=== PATIENT | male | born 1980 | race Caucasian/White ===

== ENCOUNTER 2017-03-25 17:29 | Emergency (ER) | payer SELFPAY ==
[2017-03-25 17:40] VITALS: BP 140/78
--- NOTE | 2017-03-25 18:25 | ED ---
Upper Extremity Pain - HPI Summary HPI Summary: 36 yr old male with the complaint of right shoulder pain. Onset 3 weeks ago when a box fell on his right shoulder. Pain is present only when he attempts to lift arm. Rates it as 6/10 when lifting. when at rest he has no pain. Pain localized over the lateral shoulder and radiates up his right neck when lifts arm up. He denies numbness or weakness in his right hand. Injury occurred at work 3 weeks ago per the patient. - History of Current Complaint Chief Complaint: UCUpperExtremity Stated Complaint: RIGHT SHOULDER PAIN Time Seen by Provider: 03/25/17 18:06 - Allergies/Home Medications Allergies/Adverse Reactions: Allergies Allergy/AdvReac Type Severity Reaction Status Date / Time No Known Allergies Allergy Verified 03/25/17 17:41 Home Medications: Home Medications Fenofibrate 40 mg PO BID 03/25/17 [History Confirmed 03/25/17] Insulin Detemir [Levemir Flextouch] 50 unit SC BEDTIME 03/25/17 [History Confirmed 03/25/17] Insulin LISPRO* [HumaLOG*] 10 units SUBCUT DIRECTED 03/25/17 [History Confirmed 03/25/17] Rosuvastatin (NF) [Crestor (NF)] 10 mg PO DAILY 03/25/17 [History Confirmed 07/01] metFORMIN* [Glucophage 500 MG TAB *] 500 mg PO BID 03/25/17 [History Confirmed 03/25/17] PMH/Surg Hx/FS Hx/Imm Hx Endocrine/Hematology History: Reports: Hx Diabetes - IDDM Cardiovascular History: Reports: Hx Hypertension Denies: Hx Congestive Heart Failure GI History: Reports: Hx Gastroesophageal Reflux Disease, Other GI Disorders - Pancreatitis History: Denies: Hx Renal Disease - Surgical History Surgery Procedure, Year, and Place: Appendectomy Infectious Disease History: No Infectious Disease History: Denies: Traveled Outside the [place] in Last 30 Days - Social History Alcohol Use: Rare Substance Use Type: Reports: None Smoking Status (MU): Former Smoker Type: Cigarettes Review of Systems Constitutional: Negative Positive: Other - right shoulder pain All Other Systems Reviewed And Are Negative: Yes Physical Exam Triage Information Reviewed: Yes Vital Signs On Initial Exam: Initial Vitals Temp Pulse Resp BP Pulse Ox 98.9 F 95 20 140/78 96 03/25/17 17:34 03/25/17 17:34 03/25/17 17:34 03/25/17 17:34 03/25/17 17:34 Vital Signs Reviewed: Yes Appearance: Positive: Well-Appearing, No Pain Distress, Well-Nourished Skin: Positive: Warm Head/Face: Positive: Normal Head/Face Inspection Eyes: Positive: EOMI ENT: Positive: Normal ENT inspection Neck: Positive: Supple, Nontender Respiratory/Lung Sounds: Positive: Clear to Auscultation, Breath Sounds Present Cardiovascular: Positive: Pulses are Symmetrical in both Upper and Lower Extremities - upper examined only Musculoskeletal: Positive: Other - tender over the right lateral shoulder, no deformity, no bruise, no redness, no effusion. He has pain on elevation of the arm in the abduction and forward flexion beyond 90 degrees. Neurological: Positive: Sensory/Motor Intact, Alert, Oriented to Person Place, Time, CN Intact II-III Psychiatric: Positive: Normal Diagnostics - Vital Signs Vital Signs Temp Pulse Resp BP Pulse Ox 03/25/17 17:34 98.9 F 95 20 140/78 96 - Laboratory Lab Statement: Any lab studies that have been ordered have been reviewed, and results considered in the medical decision making process. - Radiology shoulder Radiology Interpretation Completed By: ED Physician - Per my reading the patient appears to have a clavicle fracture, laterally. Radiology reads film as negative. Course/Dx - Course Course Of Treatment: 36 yr old with clavicle fracture non displaced, by my reading on xray. will Give sling, and referral to ortho. - Diagnoses Provider Diagnoses: Right clavicle fracture, Nondisplaced fracture Discharge - Discharge Plan Condition: Good Disposition: HOME Patient Education Materials: Clavicle Fracture (ED) Referrals: JULEE Hector [Primary Care Provider] - Umberto Osullivan MD [Medical Doctor] - 3 Days
--- NOTE | 2017-03-25 19:04 | RAD ---
INDICATION: Right shoulder pain since injury 3 weeks earlier COMPARISON: None. TECHNIQUE: 4 views of the right shoulder were obtained. FINDINGS: The adequately corticated bones are in normal alignment. Joint spaces appear maintained. No fracture, dislocation or focal bony abnormality is seen. IMPRESSION: Normal radiograph of the right shoulder. If the patient's symptoms persist, follow-up imaging is recommended.
== END 2017-03-25 19:33 | disposition home or self-care (01) ==
LOC: UCCORT 17:29
DX: M25.511 Pain in right shoulder (principal); E11.9 Type 2 diabetes mellitus without complications; Z79.4 Long term (current) use of insulin; Z79.84 Long term (current) use of oral hypoglycemic drugs; I10 Essential (primary) hypertension; K21.9 Gastro-esophageal reflux disease without esophagitis; K85.90 Acute pancreatitis without necrosis or infection, unspecified; Z87.891 Personal history of nicotine dependence
CPT/HCPCS: 99212; G0463

== ENCOUNTER 2017-10-09 08:49 | Inpatient (IN) | payer SELFPAY ==
[2017-10-09] MEDS ORDERED: HYDROmorphone INJ* 1 MG/ML CARPUJECT SYRINGE IV ONE ×3 (09:02→14:18)
[2017-10-09] MEDS ORDERED: Ondansetron INJ* 2 MG/ML VIAL IV ONE ×2 (09:02→12:27)
[2017-10-09 09:37] LABS: Red Blood Count 4.95 10^6/ul (4.0-5.4); White Blood Count 12.3 10^3/ul (3.5-10.8)
[2017-10-09 09:38] LABS: ABS Basophils 0 10^3/ul (0-0.2); ABS Eosinophils 0.3 10^3/ul (0-0.6); ABS Lymphocytes 1.2 10^3/ul (1.0-4.8); ABS Monocytes 1.3 10^3/ul (0-0.8); ABS Neutrophils 9.5 10^3/ul (1.5-7.7); ABS Nucleated RBC 0 10^3/ul; Eosinophil % 2.1 % (0-6); Hematocrit 38 % (42-52); Hemoglobin 12.9 g/dl (14.0-18.0); Mean Corpuscular Volume 76 fL (80-94); Mean Platelet Volume 9 um3 (7.4-10.4); Nucleated Red Blood Cells % 0.1; Platelet Count 299 10^3/ul (150-450); Red Cell Distribution Width 17 % (10.5-15)
[2017-10-09 09:39] LABS: Mean Corpuscular HGB Conc 33 g/dl (31-36); Mean Corpuscular Hemoglobin 26 pg (27-31)
[2017-10-09 10:36] LABS: EGFR Non-African American 82.2 (>60)
[2017-10-09 10:41] LABS: Urine Appearance Clear; Urine Blood Negative (Negative); Urine Color Yellow; Urine Ketones Negative (Negative); Urine Protein 3+(>=500 mg/dL) (Negative); Urine Specific Gravity 1.036 (1.010-1.030); Urine Urobilinogen Negative (Negative)
--- NOTE | 2017-10-09 10:47 | RAD ---
Indication: Right upper quadrant pain. Real-time sonography of the right upper quadrant was performed. The liver measures 22 cm in length and is enlarged. It is diffusely increased in echogenicity consistent with hepatic steatosis. The gallbladder demonstrates no gallstones, pericholecystic fluid or wall thickening. The common duct measures 5 mm. The right kidney measures 14.1 x 6.0 x 6.0 cm with no hydronephrosis. The visualized portions of the pancreas are unremarkable. There may be some enlargement of the pancreas with fluid surrounding the pancreatic head. I cannot totally exclude pancreatitis. IMPRESSION: Enlarged echogenic liver consistent with hepatic steatosis. There is an enlarged pancreas and heterogeneous-appearing of the pancreas with a small amount of fluid surrounding the pancreatic head. I cannot totally exclude pancreatitis. No evidence of cholelithiasis or biliary ductal dilatation is noted.
[2017-10-09] MEDS ORDERED: Iodixanol* (CONTRAST) 320 MG/ML 100 ML SDV IV ONE (13:04)
--- NOTE | 2017-10-09 14:34 | RAD ---
Indication: Abdominal pain, right upper quadrant pain. Contrast: Administered 130.2 ml of VISAPAQUE 320 mg/ml CT of the abdomen and pelvis was performed after oral and IV contrast administration. Coronal and sagittal reconstructed images were obtained. Lung bases demonstrate some minimal airspace disease in left lung base. This may represent pneumonia. Heart is of normal size without evidence of pericardial effusion. Liver is normal in size. No focal lesions or intrahepatic ductal dilatation is noted. The gallbladder demonstrates no calcified gallstones. No pericholecystic fluid or wall thickening is identified. The common duct is not dilated. The spleen is normal in size. No adrenal masses are noted. The kidneys demonstrate symmetric nephrograms without hydronephrosis. There is diffuse enlargement of the pancreas with peripancreatic fluid noted consistent with acute pancreatitis. The tail of the pancreas enhances less than the remainder of the pancreas and pancreatic necrosis is not excluded. No retroperitoneal adenopathy is noted. No dilated loops of bowel are noted. CT of the pelvis demonstrates no retroperitoneal or pelvic lymphadenopathy. The bladder is unremarkable. No hernias are identified. IMPRESSION: Enlarged edematous pancreas with peripancreatic fluid consistent with the acute pancreatitis. The pancreas appears to BE heterogeneous in density. The pancreatic tail does not appear to significantly enhance and the possibility of pancreatic necrosis should be considered.
[2017-10-09] MEDS ORDERED: Dextrose 50% Syringe 50 ML* 25 GM/50 ML SYRINGE IV PUSH PRN (15:57)
[2017-10-09] MEDS ORDERED: HYDROmorphone INJ* 2 MG/ML CARPUJECT SYRINGE IV SLOW PU PRN ×2 (15:57→16:53)
[2017-10-09] MEDS: Ondansetron INJ* 2 MG/ML VIAL IV PRN ×2 (17:57→23:53)
[2017-10-09] MEDS: HYDROmorphone INJ* 1 MG/ML CARPUJECT SYRINGE IV SLOW PU PRN ×2 (17:57→23:54)
[2017-10-09] MEDS: NS 0.9% 1000 ML* 1,000 ML IV SCH ×2 (17:59→22:38)
[2017-10-09] MEDS: Insulin LISPRO* 1 UNITS UNIT SUBCUT SCH ×2 (18:08→22:06)
--- NOTE | 2017-10-09 20:21 | HP ---
HISTORY AND PHYSICAL: ADDENDUM: After the patient became more awake from his sedation from narcotics , the patient was able to further elaborate on his medications stating that he no longer took Victoza. He was on atorvastatin, not Crestor, but had not picked it up and that he was admitted for this same complaint of pancreatitis last fall in [facility]. These medical records have been requested and will be reviewed upon receipt. The patient's triglycerides level also came back at 5981. This level is an indication for apheresis in patients who have severely symptomatic pancreatitis. Given the patient's current [place] and [place] stroke scores, we will monitor at this time, resume on anti-triglyceride medications as tolerated by n.p.o. status and will transfer if the patient's clinical symptoms deteriorate significantly. The patient also has a hypochromic microcytic anemia, but normal iron studies. Hemoglobin A1c is pending. JORGE KOROMA [id number]/[facility] #: [id number] CARLYN
--- NOTE | 2017-10-09 20:21 | HP ---
HISTORY AND PHYSICAL: ADDENDUM: Mr. Ferguson was found to have several prescriptions in his lunch pail , one of which was for methocarbamol, which the patient claims he was told was generic form of metformin as well as NovoLog insulin, which was not prescribed to him, both of which were prescribed to his girlfriend. JORGE KOROMA [id number]/[facility] #: [id number] CARLYN
--- NOTE | 2017-10-09 20:38 | CONS ---
GASTROENTEROLOGY CONSULTATION DATE: 10/09/17 - ROOM #338 CONSULTING PROVIDERS: JORGE Caruso; Prince PATEL, [place], [place]. REASON FOR CONSULTATION: Hypertriglyceridemic pancreatitis. HISTORY: This 37-year-old man with multiple metabolic problems (who, ironically enough, works at [employer]) developed abdominal pain today. He said there was no indication anything was amiss yesterday or in the last week. Pain is throughout most of the upper abdomen. He feels thirsty. It feels similar to other episodes he has had before. He came to the emergency room and pain is being controlled with Dilaudid. His white count is 12.3. Sodium 123, BUN 13, creatinine 1.03, triglycerides 5981, and lipase 1926. Urine specific gravity is 1.036. He states he had an episode of pancreatitis in the fall and was transferred directly from [place] [facility] to [facility] where he spent 4 to 5 days and the plasmapheresis renewable energy consultant said that his levels were not high enough to warrant the procedure. It had been considered here 3 years ago when his triglycerides were 7200, but [facility] was full and on diversion and he improved without that modality. He says he has all his medicines at home, but then did say he has to pick one up yet. That appears to be atorvastatin which he says was recommended over a month ago and he "has not been able to get by." He says his girlfriend makes sure he takes his meds. There had been a question about compliance 3 years ago. It is notable that an A1c done in the fall here was 14. There are no other A1c's in our system - the rest of his care in [place]. PAST MEDICAL HISTORY: 1. Morbid obesity - he states he has lost 6 to 7 pounds in the last year. 2. Hypertriglyceridemia with pancreatitis. 3. Status post appendectomy. 4. GERD. 5. Hypertension. 6. Diabetes, on insulin - 2 or 3 years. 7. Tobacco abuse - he quit 2 years ago. MEDICATIONS: Not known with great specificity, but listed omeprazole, insulin, metformin 1000 b.i.d., lisinopril 20, atorvastatin (the patient acknowledges he has not picked it up yet) and Victoza. Crestor is also listed 40 mg, though double statin therapy seems unlikely. SOCIAL HISTORY: He lives with his girlfriend of 2 years' duration. She is said to have elevated liver enzymes. REVIEW OF SYSTEMS: No history of jaundice, hepatitis, rash, xanthelasma, seizures, syncope, MA, cardiac valve abnormalities, kidney stones, rectal bleeding. PHYSICAL EXAM: He is a morbidly obese young man in bed stating his abdomen hurts, but it is better since his shots. He has multiple tattoos. No xanthomas are noted. He has no adenopathy. Mucous membranes are a little dry. Heart sounds are irregular at about a 100. Breath sounds are intact. The abdomen is symmetric, fairly silent and actually fairly soft, no rigidity. He is tender to deep palpation diffusely, but there is no particular focal area. Rectal deferred. His extremities show no edema. Neurologic is nonfocal, but not pursued in great detail given his abdominal pain and sedation. DIAGNOSTIC STUDIES: CT scan - swollen pancreas without ascites, question of perfusion of the pancreatic tail. IMPRESSION: This 37-year-old man with multiple metabolic abnormalities and unfortunately led by a very profound tendency to hypertriglyceridemia comes in with at least his fifth or sixth episode of pancreatitis. It is suspected that his medication compliance has lapsed given his weight, failure to mixing picker tender atorvastatin and A1c this fall of 14. With n.p.o. status, insulin and then resumption of his regular meds, he can be stabilized in the short term. Further insight from his girlfriend's experience will be of interest. [id number]/[facility] #: [id number] MTDD
--- NOTE | 2017-10-09 22:00 | HP ---
TWO ADDENDUMS NOW INCLUDED ON THIS REPORT CC: JORGE Sarmiento; Vince Ramirez MD * HISTORY AND PHYSICAL: DATE OF ADMISSION: 10/09/17 PRIMARY CARE PROVIDER: JORGE Sarmiento MY ATTENDING WHILE IN THE HOSPITAL: Marco A Mendez MD * (DICTATED BY JORGE KOROMA) CONSULTING STATEMENT CLERKS SUPERVISOR: Vince Ramirez MD CHIEF COMPLAINT: Right upper quadrant pain since 5:30 this morning. HISTORY OF PRESENT ILLNESS: Mr. Ferguson is a 37-year-old male with a past medical history significant for pancreatitis, severe hypertriglyceridemia, GERD , insulin- dependent diabetes mellitus who presents with several hours of right upper quadrant pain that he describes as sharp, constant and at its worst 10/ 10. The patient states that when he woke up this morning around 5:30, he had only a slight amount of pain in his right upper quadrant. The patient states that the pain progressively got worse over the course of next hour and a half at which point he called EMS, and was brought into the hospital. The patient states that he had a cold for the past 2 weeks, his daughter had the flu and his girlfriend had cold as well though he was recovering at this point. The patient threw up twice before coming to the hospital, has been intermittently nauseous while in the hospital. Denies any blood or coffee-ground material in his vomiting. The patient denies fevers, chills, chest pain, shortness of breath, palpitations, rashes. The patient does not know his most triglycerides reading, but he states that his lipase is chronically elevated, but he cannot express a range except that it is less than 1900. The patient's lipase today in the emergency department was 1900. The patient's pain was able to be well controlled with Dilaudid and his nausea controlled with Zofran. At the time of evaluation, the patient's pain was 1 to 2/10, but was worse with movement and abdominal palpation. The patient had no diarrhea or other complaints. Due to pancreatitis both evidenced by elevated lipase and by CT findings, we were asked to evaluate for admission. PAST MEDICAL HISTORY: Pancreatitis due to hypertriglyceridemia, GERD, diabetes mellitus, morbid obesity. PAST SURGICAL HISTORY: Appendectomy. MEDICATIONS: At admission: 1. Atorvastation 80 mg p.o. daily 2. Choline fenofibrate 135 mg p.o. daily. 3. Metformin 1000 mg p.o. b.i.d. 4. Lisinopril 20 mg p.o. daily. 5. Insulin Detemir 50 mg subcutaneous at bedtime. 6. Insulin lispro 10 units subcutaneous t.i.d. a.c. 7. Omeprazole 20 mg p.o. daily. This list was obtained from the patient's pharmacy. He is currently unaware otherwise what medications he takes. He states he is on insulin, but does not know which type. The only other one the patient can remember is lisinopril. The only recent prescriptions that the patient has had filled in his pharmacy were metformin and atorvastatin. ALLERGIES: No known drug allergies. FAMILY HISTORY: The patient's father in a car crash with no known past medical history. The patient's mother has hyperlipidemia. The patient's paternal grandfather of lung cancer. The patient's uncle has leukemia. SOCIAL HISTORY: The patient is a previous tobacco user, quit smoking in 2016, after approximately [id number] history. The patient drinks occasional alcohol , no drug use. The patient works at [employer]. The patient is from his and has 2 children. REVIEW OF SYSTEMS: A 14-point review of systems was reviewed and is negative except as above. PHYSICAL EXAMINATION GENERAL: The patient is a 37-year-old male, who appears stated age and is sitting in the bed in no distress, obviously sedated. HEENT: Head: Normocephalic, atraumatic. Sclerae anicteric. No conjunctival injection. Nasal mucosa moist. Oral mucosa moist. No pharyngeal erythema, discharge or exudate. NECK: Supple, nontender. No lymphadenopathy. No carotid bruit auscultated. RESPIRATORY: Clear to auscultation bilaterally. No wheezes, rales or rhonchi. Good air exchange bilaterally. CARDIAC: Tachycardic. No clicks, murmurs, gallops or rubs. Pulses 2+ in bilateral dorsalis pedis, posterior tibialis and radial area. No lower extremity edema noted. ABDOMEN: Obese, exquisitely tender to palpation in the right upper quadrant. No referred rebound, voluntary and involuntary guarding. No hepatosplenomegaly. Bowel sounds severely hypoactive. No abdominal bruits auscultated. GENITOURINARY: No suprapubic tenderness or CVA tenderness. SKIN: Clean, dry and intact. No rash. NEUROLOGIC: Cranial nerves II through XII intact. Alert and oriented x3. No focal deficits. PSYCHIATRIC: Pleasant and cooperative. LABORATORY DATA: White blood cell count 12.3, red blood cell count 4.95, hemoglobin 12.9, hematocrit 38, MCV is 76, MCH 23, RDW is 17, platelet count 299. Sodium 123, potassium 4.2, chloride 93, carbon dioxide 21, anion gap 9, BUN 13, creatinine 1.03, glucose 239, lactic acid 1.8, calcium 9.4, total bilirubin 0.5, AST 59, ALT 11, alkaline phosphatase 103, troponin I 0.00, CRP 9.9, protein 7.3, albumin 3.8, globulin 3.5, lipase 1926. Urine: Yellow, clear , 7.0 pH, specific gravity 1.036 and 3+ protein, squamous epithelial cells present, glucose 3+. No other findings. STUDIES: Gallbladder ultrasound read as enlarged echogenic liver consistent with hepatic steatosis, enlarged pancreas. Heterogenous appearing pancreas with a small amount of fluids surrounding pancreatic head, cannot totally exclude pancreatitis. No evidence for cholelithiasis or biliary ductal dilatation noted. Abdomen and pelvis CT from 10/09/17 read as enlarged edematous pancreas with peripancreatic fluid consistent with acute pancreatitis. Pancreas appears to be heterogenous in density. The pancreatic tail does not appear to significantly enhance and the possibility pancreatic necrosis should be considered. IMPRESSION: The patient is a 37-year-old male with past medical history significant for pancreatitis caused by severe hypertriglyceridemia with subsequent diabetes mellitus. The patient has a recurrent pancreatic episode consistent with recurrent pancreatitis. He will be admitted to the hospital for pain control and supportive care. 1. Acute pancreatitis: The patient has lipase [place] [address] and ultrasound evidence consistent with pancreatitis as well as a history of pancreatitis. The patient previously had pancreatitis due to hypertriglyceridemia. The patient does not know his medications. It does not appear as if the patient has filled his fibrate at his pharmacy recently; however, the patient claims that he is taking his medications. The patient does not seem to know what medications he takes, however. A new triglyceride level is pending. The patient 's most recent triglyceride level in our system is 871 from 10/05/17. The patient at one point in 2013 had a triglyceride level greater than 10,000. This has been discussed with Gastroenterology, who will see the patient in consultation and states that if triglyceride are comparably high again, he will possibly need to be transferred for plasmapheresis. The patient also has been prescribed Victoza in the past of which pancreatitis is a complication. This is not likely related to gallstones. The patient has finding on CT consistent with pancreatic necrosis. The patient has no discretely encapsulated pancreatic necrosis or any signs or infection except for elevated white blood cell count and tachycardia, which may be related to pain, stress response and dehydration. We will not start the patient on antibiotics at this time. The patient's urine output is adequate. We will track this closely. The patient has a [place] score of 1 indicating a 1% predicted mortality and an [place] score of 9, a 6% estimated nonoperative mortality of 6%. The patient does not require ICU admission. We will initiate therapy to reduce patient's triglyceride level if indicated. The patient is stable at this time. 2. Diabetes: The patient will be n.p.o. The patient currently has elevated glucose. The patient will be on fingersticks q.4 hours due to n.p.o. status and will have insulin sliding scale insulin coverage for this. We will hold the patient's long-acting insulin at this time. We will hold patient's other medications until the results of his lipid panel are back. 3. Gastroesophageal reflux disease: Hold the patient's omeprazole due to n.p.o. status. 4. DVT prophylaxis: The patient is a low risk, we will prescribe SCDs. 5. FEN: The patient will have normal saline at 200 mL an hour. The patient will be n.p.o. as above. 6. Code status: The patient will be full code. The patient would like his healthcare proxy to be his girlfriend, Sultana Hardin. 7. Disposition: The patient admitted to inpatient. ESTIMATED LENGTH OF STAY: Greater than 2 days. TIME SPENT: Approximately 60 minutes were spent on this admission, 30 of which were spent [id number] with the patient obtaining history and physical and discussing treatment plan as well as this plan has been discussed with my attending Dr. Marco A Mendez, and he is in agreement. ADDENDUM NO.1: Mr. Ferguson was found to have several prescriptions in his lunch pail, one of which was for methocarbamol, which the patient claims he was told was generic form of metformin as well as NovoLog insulin, which was not prescribed to him, both of which were prescribed to his girlfriend. ADDENDUM NO.2: After the patient became more awake from his sedation from narcotics, the patient was able to further elaborate on his medications stating that he no longer took Victoza. He was on atorvastatin, not Crestor, but had not picked it up and that he was admitted for this same complaint of pancreatitis last fall in [facility]. These medical records have been requested and will be reviewed upon receipt. The patient's triglycerides level also came back at 5981. This level is an indication for apheresis in patients who have severely symptomatic pancreatitis. Given the patient's current [place] and [place] stroke scores, we will monitor at this time, resume on anti-triglyceride medications as tolerated by n.p.o. status and will transfer if the patient's clinical symptoms deteriorate significantly. The patient also has a hypochromic microcytic anemia, but normal iron studies. Hemoglobin A1c is pending. JORGE KOROMA [id number]/[facility] #: [id number] #: [id number]/[facility] #: [id number] CARLYN
[2017-10-10] MEDS: Insulin LISPRO* 1 UNITS UNIT SUBCUT SCH ×6 (02:18→21:59)
[2017-10-10] MEDS: HYDROmorphone INJ* 1 MG/ML CARPUJECT SYRINGE IV SLOW PU PRN (03:51)
[2017-10-10] MEDS: NS 0.9% 1000 ML* 1,000 ML IV SCH ×4 (03:53→23:08)
[2017-10-10 05:22] LABS: Hematocrit 40 % (42-52); Hemoglobin 13.7 g/dl (14.0-18.0); Mean Corpuscular HGB Conc 34 g/dl (31-36); Mean Corpuscular Hemoglobin 27 pg (27-31); Mean Corpuscular Volume 78 fL (80-94); Mean Platelet Volume 9 um3 (7.4-10.4); Platelet Count 290 10^3/ul (150-450); Red Blood Count 5.14 10^6/ul (4.0-5.4); Red Cell Distribution Width 17 % (10.5-15); White Blood Count 16.2 10^3/ul (3.5-10.8)
[2017-10-10 06:00] LABS: EGFR Non-African American 116.7 (>60)
[2017-10-10 06:17] LABS: ABS Basophils 0.2 10^3/ul (0-0.2); ABS Eosinophils 0.2 10^3/ul (0-0.6); ABS Lymphocytes 1.1 10^3/ul (1.0-4.8); ABS Monocytes 0.2 10^3/ul (0-0.8); ABS Neutrophils 14.6 10^3/ul (1.5-7.7); ABS Nucleated RBC 0 10^3/ul; Eosinophil % 1.2 % (0-6); Lymphocyte % 6.6 % (25-47); Nucleated Red Blood Cells % 0.1
[2017-10-10] MEDS ORDERED: Magnesium Sulfate 1 GM IV* 1 GM/100 ML BAG IV ONE (08:30)
--- NOTE | 2017-10-10 08:51 | PN ---
Subjective Date of Service: 10/10/17 Interval History: Patient seen and examined. States he vomited overnight, but was not nauseous. Stated he was coughing up phlegm and he gagged and it made him vomit. Denies any fever, chills, fatigue, headache or chest pain. Denies nausea, abdominal pain controlled. Objective Active Medications: Dextrose (D50w Syringe 50 Ml*) 12.5 gm IV PUSH .FOR FS < 60 - SS PRN PRN Reason: FS < 60 Hydromorphone HCl (Dilaudid Injic*) 1 mg IV SLOW PU Q4H PRN PRN Reason: PAIN Last Admin: 10/10/17 03:51 Dose: 1 mg Sodium Chloride (Ns 0.9% 1000 Ml*) 1,000 mls @ 200 mls/hr IV PER RATE COBY Last Admin: 10/10/17 03:53 Dose: 200 mls/hr Magnesium Sulfate/Dextrose (Magnesium Sulfate 1 Gm Iv*) 1 gm in 100 mls @ 200 mls/hr IV ONCE ONE Stop: 10/10/17 08:59 Insulin Human Lispro (Humalog*) 0 units SUBCUT Q4HR COBY PRN Reason: Protocol Last Admin: 10/10/17 05:49 Dose: 6 unit Ondansetron HCl (Zofran Inj*) 4 mg IV Q6H PRN PRN Reason: NAUSEA Last Admin: 10/09/17 23:53 Dose: 4 mg Vital Signs - 8 hr 10/10/17 10/10/17 10/10/17 02:19 03:46 03:51 Temperature 98.1 F Pulse Rate 113 Respiratory 20 22 20 Rate Blood Pressure 125/74 (mmHg) O2 Sat by Pulse 94 Oximetry 10/10/17 05:11 Temperature Pulse Rate Respiratory 20 Rate Blood Pressure (mmHg) O2 Sat by Pulse Oximetry Oxygen Devices in Use Now: None Appearance: Alert, NAD Eyes: No Scleral Icterus, PERRLA Ears/Nose/Mouth/Throat: Mucous Membranes Moist Neck: Trachea Midline Respiratory: Symmetrical Chest Expansion and Respiratory Effort, Clear to Auscultation Cardiovascular: NL Sounds; No Murmurs; No JVD, No Edema Abdominal: No Hepatosplenomegaly Extremities: No Edema, No Clubbing, Cyanosis Skin: No Rash or Ulcers Neurological: Alert and Oriented x 3, NL Sensation Nutrition: - - NPO Result Diagrams: 10/10/17 05:02 10/10/17 05:02 Diagnostic Imaging: Patient Name: MARIELA DUENAS Medical Record#: [id number] Ordering Physician: Eddie Burnette MD Acct.#: [id number] : 1980 Age: 37 Sex: M Location: EMERGENCY DEPARTMENT Exam Date: 10/09/17 1150 ADM Status: REG ER Order Information: CT ABD/PEL W Accession Number: [id number] CPT: 30646 Indication: Abdominal pain, right upper quadrant pain. Contrast: Administered 130.2 ml of VISAPAQUE 320 mg/ml CT of the abdomen and pelvis was performed after oral and IV contrast administration. Coronal and sagittal reconstructed images were obtained. Lung bases demonstrate some minimal airspace disease in left lung base. This may represent pneumonia. Heart is of normal size without evidence of pericardial effusion. Liver is normal in size. No focal lesions or intrahepatic ductal dilatation is noted. The gallbladder demonstrates no calcified gallstones. No pericholecystic fluid or wall thickening is identified. The common duct is not dilated. The spleen is normal in size. No adrenal masses are noted. The kidneys demonstrate symmetric nephrograms without hydronephrosis. There is diffuse enlargement of the pancreas with peripancreatic fluid noted consistent with acute pancreatitis. The tail of the pancreas enhances less than the remainder of the pancreas and pancreatic necrosis is not excluded. No retroperitoneal adenopathy is noted. No dilated loops of bowel are noted. CT of the pelvis demonstrates no retroperitoneal or pelvic lymphadenopathy. The bladder is unremarkable. No hernias are identified. IMPRESSION: Enlarged edematous pancreas with peripancreatic fluid consistent with the acute pancreatitis. The pancreas appears to BE heterogeneous in density. The pancreatic tail does not appear to significantly enhance and the possibility of pancreatic necrosis should be considered. <Electronically signed by Marie Quesada MD in [place]> 10/09/17 1430 Dictated By: Marie Quesada MD Dictated Date/Time: 10/09/17 1430 Transcribed Date/Time: 10/09/17 1417 Copy to: Assess/Plan/Problems-Billing Assessment: This is a 37 year old male with history of pancreatitis, DM with hyperglycemia, hypertriglyceridemia and medicaltion non-compliance, admitted for abdominal pain and pancreatitis. - Patient Problems (1) Acute pancreatitis Code(s): K85.9 - ACUTE PANCREATITIS, UNSPECIFIED * DO NOT USE * SNOMED Code(s) : 529787673 Comment: - 2/2 hypertriglyceridemia - NPO, fluids, pain control - CT abdoment as above - Lipase 686 today, trending down - GI consult appreciated (2) Diabetes mellitus Code(s): E11.9 - TYPE 2 DIABETES MELLITUS WITHOUT COMPLICATIONS SNOMED Code(s) : 66949232 Comment: - Questionable compliance with medications at home - Remain NPO and on lispro SS - HgB A1c=12.8 this admission (3) Hypertriglyceridemia Code(s): E78.1 - PURE HYPERGLYCERIDEMIA SNOMED Code(s): 513074367 Comment: - Questionable compliances with medications at home - Statin initiated - Tlyx=1647 today, does not meet criteria for plasmapheresis at this time (4) GERD (gastroesophageal reflux disease) Code(s): K21.9 - GASTRO-ESOPHAGEAL REFLUX DISEASE WITHOUT ESOPHAGITIS SNOMED Code(s): 941637051 Comment: - Start PPI today Status and Disposition: Remain inpatient. Counseling and/or Coordination of Care Minutes: coordinated with staff
[2017-10-10] MEDS ORDERED: Omeprazole CAP* 20 MG ONE (09:06)
[2017-10-10] MEDS: Omeprazole CAP* 20 MG PO SCH (09:11)
[2017-10-10] MEDS ORDERED: HYDROmorphone INJ* 1 MG/ML CARPUJECT SYRINGE IV SLOW PU PRN (14:36)
[2017-10-10] MEDS ORDERED: NS 0.9% 1000 ML* 1,000 ML IV SCH ×2 (16:45→18:03)
--- NOTE | 2017-10-10 20:52 | ED ---
Ricardo Lyn Thomas, scribed for Eddie Burnette MD on 10/09/17 at 0935 . Abdominal Pain/Male - HPI Summary HPI Summary: The patient is a 37 year old male complaining of RLQ and RUQ sharp pain that began at 05:30. Patient notes that palpation aggravates the pain and the last time he ate was the night prior. The patient denies any dysuria. Patient is diabetic and has previously had an appendectomy. - History of Current Complaint Chief Complaint: EDAbdPain Stated Complaint: ABD PAIN Time Seen by Provider: 10/09/17 09:00 Hx Obtained From: Patient Onset/Duration: Lasting Hours, Still Present Timing: Constant Severity Currently: Moderate Pain Intensity: 8 Pain Scale Used: 0-10 Numeric Location: Discrete At: RUQ, Discrete At: RLQ Character: Sharp Aggravating Factor(s): Other: - palpation Associated Signs And Symptoms: Negative: Urinary Symptoms - Allergies/Home Medications Allergies/Adverse Reactions: Allergies Allergy/AdvReac Type Severity Reaction Status Date / Time No Known Allergies Allergy Verified 04/26/17 13:12 Home Medications: Home Medications Atorvastatin* [Lipitor*] 40 mg PO DAILY 10/09/17 [History Confirmed 10/09/17] Choline Fenofibrate(NF) [Trilipix(NF)] 135 mg PO DAILY 10/09/17 [History Confirmed 10/09/17] Liraglutide (NF) [Victoza (NF)] 1.2 mg SUBCUT DAILY 10/09/17 [History Confirmed 10/09/17] Lisinopril TAB* [Prinivil TAB*] 20 mg PO DAILY 10/09/17 [History Confirmed 10/09] Rosuvastatin (NF) [Crestor (NF)] 40 mg PO DAILY 10/09/17 [History Confirmed ] metFORMIN* [Glucophage 1000 MG TAB *] 1,000 mg PO BID 10/09/17 [History Confirmed 10/09/17] PMH/Surg Hx/FS Hx/Imm Hx Endocrine/Hematology History: Reports: Hx Diabetes - IDDM Cardiovascular History: Reports: Hx Hypertension Denies: Hx Congestive Heart Failure, Hx Pacemaker/ICD GI History: Reports: Hx Gastroesophageal Reflux Disease, Other GI Disorders - Pancreatitis History: Denies: Hx Renal Disease Sensory History: Denies: Hx Hearing Aid Psychiatric History: Denies: Hx Panic Disorder - Surgical History Surgery Procedure, Year, and Place: Appendectomy Infectious Disease History: No Infectious Disease History: Denies: Traveled Outside the [place] in Last 30 Days - Family History Known Family History: Positive: Other - lung cancer - Social History Alcohol Use: Rare Substance Use Type: Reports: None Smoking Status (MU): Former Smoker Type: Cigarettes Review of Systems Positive: Abdominal Pain - RUQ and RLQ Negative: dysuria All Other Systems Reviewed And Are Negative: Yes Physical Exam - Summary Physical Exam Summary: Appearance: The patient is well-nourished in no acute distress and in no acute pain. Skin: The skin is warm and dry and skin color reflects adequate perfusion. HEENT: The head is normocephalic and atraumatic. The pupils are equal and reactive. The conjunctivae are clear and without drainage. Nares are patent and without drainage. Mouth reveals moist mucous membranes and the throat is without erythema and exudate. The external ears are intact. The ear canals are patent and without drainage. The tympanic membranes are intact. Neck: the neck is supple with full range of motion and non-tender. There are no carotid bruits. There is no neck vein distension. Respiratory: Chest is non-tender. Lungs are clear to auscultation and breath sounds are symmetrical and equal. Cardiovascular: Heart is regular rate and rhythm.~There is no murmur or rub auscultated.~There is no peripheral edema and pulses are symmetrical and equal. Abdomen: The abdomen is tender in the right upper and lower quadrants. There are normal bowel sounds heard in all four quadrants and there is no organomegaly palpated. Musculoskeletal: There is no back tenderness noted. Extremities are non-tender with full range of motion. There is good capillary refill. There is no peripheral edema or calf tenderness elicited. Neurological: Patient is alert and oriented to person, place and time. The patient has symmetrical motor strength in all four extremities. Cranial nerves are grossly intact. Deep tendon reflexes are symmetrical and equal in all four extremities. Psychiatric: The patient has an appropriate affect and does not exhibit any anxiety or depression. Triage Information Reviewed: Yes Vital Signs On Initial Exam: Initial Vitals Temp Pulse Resp BP Pulse Ox 97.5 F 89 22 161/106 96 10/09/17 08:49 10/09/17 08:49 10/09/17 08:49 10/09/17 08:49 10/09/17 08:49 Vital Signs Reviewed: Yes Diagnostics - Vital Signs Vital Signs Temp Pulse Resp BP Pulse Ox 10/09/17 09:12 22 10/09/17 09:00 93 28 157/104 98 10/09/17 08:58 94 30 99 10/09/17 08:57 161/106 10/09/17 08:49 97.5 F 89 22 161/106 96 - Laboratory Lab Results: Lab Results 10/09/17 10/09/17 10/09/17 Range/Units 09:11 09:11 09:11 WBC 12.3 H (3.5-10.8) 10^3/ul RBC 4.95 (4.0-5.4) 10^6/ul Hgb 12.9 L (14.0-18.0) g/dl Hct 38 L (42-52) % MCV 76 L (80-94) fL MCH 26 L (27-31) pg MCHC 33 (31-36) g/dl RDW 17 H (10.5-15) % Plt Count 299 (150-450) 10^3/ul MPV 9 (7.4-10.4) um3 Neut % (Auto) 77.3 (38-83) % Lymph % (Auto) 10.0 L (25-47) % [place] % (Auto) 10.4 H (0-7) % Eos % (Auto) 2.1 (0-6) % Baso % (Auto) 0.2 (0-2) % Absolute Neuts (auto) 9.5 H (1.5-7.7) 10^3/ul Absolute Lymphs (auto) 1.2 (1.0-4.8) 10^3/ul Absolute Monos (auto) 1.3 H (0-0.8) 10^3/ul Absolute Eos (auto) 0.3 (0-0.6) 10^3/ul Absolute Basos (auto) 0 (0-0.2) 10^3/ul Absolute Nucleated RBC 0 10^3/ul Nucleated RBC % 0.1 Rouleaux 1+ Sodium 123 L (133-145) mmol/L Potassium 4.2 (3.5-5.0) mmol/L Chloride 93 L (101-111) mmol/L Carbon Dioxide 21 L (22-32) mmol/L Anion Gap 9 (2-11) mmol/L BUN 13 (6-24) mg/dL Creatinine 1.03 (0.67-1.17) mg/dL Est GFR ( Amer) 105.7 (>60) Est GFR (Non-Af Amer) 82.2 (>60) BUN/Creatinine Ratio 12.6 (8-20) Glucose 239 H (70-100) mg/dL Hemoglobin A1c (4.0-5.6) % Lactic Acid 1.8 (0.5-2.0) mmol/L Calcium 9.4 (8.6-10.3) mg/dL Iron 83 (50-212) ug/dL TIBC 321 (250-450) mcg/dL % Saturation 26 (15-55) % Unsat Iron Binding 238 ug/dL Ferritin 191.8 (24-336) ng/mL Total Bilirubin 0.50 (0.2-1.0) mg/dL AST 59 H (13-39) U/L ALT 11 (7-52) U/L Alkaline Phosphatase 103 (34-104) U/L Troponin I 0.00 (<0.04) ng/mL C-Reactive Protein 9.90 H (< 5.00) mg/L Total Protein 7.3 (6.4-8.9) g/dL Albumin 3.8 (3.2-5.2) g/dL Globulin 3.5 (2-4) g/dL Albumin/Globulin Ratio 1.1 (1-3) Triglycerides 5981 mg/dL Cholesterol 697 mg/dL LDL Cholesterol mg/dL LDL Cholesterol Direct 86 mg/dL HDL Cholesterol 28.1 mg/dL Lipase 1926 H (11.0-82.0) U/L Urine Color Urine Appearance Urine pH (5-9) Ur Specific [place] (1.010-1.030) Urine Protein (Negative) Urine Ketones (Negative) Urine Blood (Negative) Urine Nitrate (Negative) Urine Bilirubin (Negative) Urine Urobilinogen (Negative) Ur Leukocyte Esterase (Negative) Urine WBC (Auto) (Absent) Urine RBC (Auto) (Absent) Ur Squamous Epith Cells (Absent) Urine Bacteria (Absent) Urine Glucose (Negative) 10/09/17 10/09/17 Range/Units 09:11 10:10 WBC (3.5-10.8) 10^3/ul RBC (4.0-5.4) 10^6/ul Hgb (14.0-18.0) g/dl Hct (42-52) % MCV (80-94) fL MCH (27-31) pg MCHC (31-36) g/dl RDW (10.5-15) % Plt Count (150-450) 10^3/ul MPV (7.4-10.4) um3 Neut % (Auto) (38-83) % Lymph % (Auto) (25-47) % [place] % (Auto) (0-7) % Eos % (Auto) (0-6) % Baso % (Auto) (0-2) % Absolute Neuts (auto) (1.5-7.7) 10^3/ul Absolute Lymphs (auto) (1.0-4.8) 10^3/ul Absolute Monos (auto) (0-0.8) 10^3/ul Absolute Eos (auto) (0-0.6) 10^3/ul Absolute Basos (auto) (0-0.2) 10^3/ul Absolute Nucleated RBC 10^3/ul Nucleated RBC % Rouleaux Sodium (133-145) mmol/L Potassium (3.5-5.0) mmol/L Chloride (101-111) mmol/L Carbon Dioxide (22-32) mmol/L Anion Gap (2-11) mmol/L BUN (6-24) mg/dL Creatinine (0.67-1.17) mg/dL Est GFR ( Amer) (>60) Est GFR (Non-Af Amer) (>60) BUN/Creatinine Ratio (8-20) Glucose (70-100) mg/dL Hemoglobin A1c 12.8 H (4.0-5.6) % Lactic Acid (0.5-2.0) mmol/L Calcium (8.6-10.3) mg/dL Iron (50-212) ug/dL TIBC (250-450) mcg/dL % Saturation (15-55) % Unsat Iron Binding ug/dL Ferritin (24-336) ng/mL Total Bilirubin (0.2-1.0) mg/dL AST (13-39) U/L ALT (7-52) U/L Alkaline Phosphatase (34-104) U/L Troponin I (<0.04) ng/mL C-Reactive Protein (< 5.00) mg/L Total Protein (6.4-8.9) g/dL Albumin (3.2-5.2) g/dL Globulin (2-4) g/dL Albumin/Globulin Ratio (1-3) Triglycerides mg/dL Cholesterol mg/dL LDL Cholesterol mg/dL LDL Cholesterol Direct mg/dL HDL Cholesterol mg/dL Lipase (11.0-82.0) U/L Urine Color Yellow Urine Appearance Clear Urine pH 7.0 (5-9) Ur Specific [place] 1.036 H (1.010-1.030) Urine Protein 3+(>=500 mg/dl) H (Negative) Urine Ketones Negative (Negative) Urine Blood Negative (Negative) Urine Nitrate Negative (Negative) Urine Bilirubin Negative (Negative) Urine Urobilinogen Negative (Negative) Ur Leukocyte Esterase Negative (Negative) Urine WBC (Auto) Trace(0-5/hpf) (Absent) Urine RBC (Auto) Trace(0-2/hpf) (Absent) Ur Squamous Epith Cells Present H (Absent) Urine Bacteria Absent (Absent) Urine Glucose 3+(>=500 mg/dl) H (Negative) Result Diagrams: 10/10/17 05:02 10/10/17 05:02 Lab Statement: Any lab studies that have been ordered have been reviewed, and results considered in the medical decision making process. - Additional Comments Diagnostic Additional Comments: Ultrasound Gallbladder: Interpreted by the radiologist. Impression: Enlarged echogenic liver consistent with hepatic steatosis. Dr. Burnette has reviewed this report. Abdominal Pain Fem Course/Dx - Course Course Of Treatment: Mr. Ferguson presented with severe RUQ/ epigastic pain and was found to have pancreatitis. He is being admitted to the hospitalist service and has received fluids and pain medications. - Diagnoses Provider Diagnoses: Pancreatitis Discharge - Discharge Plan Condition: Stable Disposition: ADMITTED TO [facility] documentation as recorded by the Ricardo sims Thomas accurately reflects the service I personally performed and the decisions made by , Eddie Burnette MD.
[2017-10-11] MEDS: Insulin LISPRO* 1 UNITS UNIT SUBCUT SCH ×4 (02:11→14:31)
[2017-10-11] MEDS: NS 0.9% 1000 ML* 1,000 ML IV SCH (04:06)
[2017-10-11 05:30] LABS: EGFR Non-African American 162.7 (>60)
[2017-10-11] MEDS: Omeprazole CAP* 20 MG PO SCH (05:46)
[2017-10-11] MEDS ORDERED: Magnesium Sulfate 1 GM IV* 1 GM/100 ML BAG IV ONE (07:14)
[2017-10-11] MEDS ORDERED: Calcium Gluconate INJ* 1 GM in NS 0.9% 50 ML* 50 ML IVPB ONE (07:15)
[2017-10-11] MEDS ORDERED: KCL 10 MEQ/50 ML IVPREMIX* 10 MEQ/50 ML BAG IV SCH (08:00)
[2017-10-11] MEDS ORDERED: Potassium Chloride IV* 20 MEQ in NS 0.9% 100 ML* 100 ML IVPB ONE (08:00)
[2017-10-11] MEDS ORDERED: NS 0.9% 1000 ML* 1,000 ML IV SCH (09:45)
--- NOTE | 2017-10-11 14:11 | PN ---
Subjective Date of Service: 10/11/17 Interval History: Patient seen and examined. No acute overnight events. No vomiting, no abdominal pain, tachycardia improving, BG is under better control. Denies SOB, no chest pain. Patient wants to go home tonight. Objective Active Medications: Dextrose (D50w Syringe 50 Ml*) 12.5 gm IV PUSH .FOR FS < 60 - SS PRN PRN Reason: FS < 60 Hydromorphone HCl (Dilaudid Injic*) 1 mg IV SLOW PU Q6H PRN PRN Reason: PAIN Sodium Chloride (Ns 0.9% 1000 Ml*) 1,000 mls @ 200 mls/hr IV PER RATE [facility] Last Admin: 10/11/17 04:06 Dose: 200 mls/hr Sodium Chloride (Ns 0.9% 1000 Ml*) 1,000 mls @ 100 mls/hr IV PER RATE [facility] Last Admin: 10/11/17 10:53 Dose: 100 mls/hr Insulin Human Lispro (Humalog*) 0 units SUBCUT Q4HR [facility] PRN Reason: Protocol Last Admin: 10/11/17 10:52 Dose: 2 unit Omeprazole (Prilosec Cap*) 20 mg PO 0600 [facility] Last Admin: 10/11/17 05:46 Dose: 20 mg Ondansetron HCl (Zofran Inj*) 4 mg IV Q6H PRN PRN Reason: NAUSEA Last Admin: 10/09/17 23:53 Dose: 4 mg Vital Signs - 8 hr 10/11/17 10/11/17 07:19 08:04 Temperature 97.9 F Pulse Rate 104 Respiratory 17 18 Rate Blood Pressure 132/64 (mmHg) O2 Sat by Pulse 96 Oximetry Oxygen Devices in Use Now: None Appearance: Alert, NAD Ears/Nose/Mouth/Throat: Mucous Membranes Moist Neck: Trachea Midline Respiratory: Symmetrical Chest Expansion and Respiratory Effort, Clear to Auscultation Cardiovascular: NL Sounds; No Murmurs; No JVD, No Edema Abdominal: NL Sounds; No Tenderness; No Distention, No Hepatosplenomegaly Extremities: No Edema Neurological: Alert and Oriented x 3, NL Sensation, NL Gait Nutrition: - - tolerating clears Result Diagrams: 10/10/17 05:02 10/11/17 04:50 Additional Lab and Data: Lab Results 10/09/17 10/09/17 10/09/17 Range/Units 09:11 09:11 09:11 WBC 12.3 H (3.5-10.8) 10^3/ul RBC 4.95 (4.0-5.4) 10^6/ul Hgb 12.9 L (14.0-18.0) g/dl Hct 38 L (42-52) % MCV 76 L (80-94) fL MCH 26 L (27-31) pg MCHC 33 (31-36) g/dl RDW 17 H (10.5-15) % Plt Count 299 (150-450) 10^3/ul MPV 9 (7.4-10.4) um3 Neut % (Auto) 77.3 (38-83) % Lymph % (Auto) 10.0 L (25-47) % [place] % (Auto) 10.4 H (0-7) % Eos % (Auto) 2.1 (0-6) % Baso % (Auto) 0.2 (0-2) % Absolute Neuts (auto) 9.5 H (1.5-7.7) 10^3/ul Absolute Lymphs (auto) 1.2 (1.0-4.8) 10^3/ul Absolute Monos (auto) 1.3 H (0-0.8) 10^3/ul Absolute Eos (auto) 0.3 (0-0.6) 10^3/ul Absolute Basos (auto) 0 (0-0.2) 10^3/ul Absolute Nucleated RBC 0 10^3/ul Nucleated RBC % 0.1 Rouleaux 1+ Sodium 123 L (133-145) mmol/L Potassium 4.2 (3.5-5.0) mmol/L Chloride 93 L (101-111) mmol/L Carbon Dioxide 21 L (22-32) mmol/L Anion Gap 9 (2-11) mmol/L BUN 13 (6-24) mg/dL Creatinine 1.03 (0.67-1.17) mg/dL Est GFR ( Amer) 105.7 (>60) Est GFR (Non-Af Amer) 82.2 (>60) BUN/Creatinine Ratio 12.6 (8-20) Glucose 239 H (70-100) mg/dL Hemoglobin A1c (4.0-5.6) % Lactic Acid 1.8 (0.5-2.0) mmol/L Calcium 9.4 (8.6-10.3) mg/dL Iron 83 (50-212) ug/dL TIBC 321 (250-450) mcg/dL % Saturation 26 (15-55) % Unsat Iron Binding 238 ug/dL Ferritin 191.8 (24-336) ng/mL Total Bilirubin 0.50 (0.2-1.0) mg/dL AST 59 H (13-39) U/L ALT 11 (7-52) U/L Alkaline Phosphatase 103 (34-104) U/L Troponin I 0.00 (<0.04) ng/mL C-Reactive Protein 9.90 H (< 5.00) mg/L Total Protein 7.3 (6.4-8.9) g/dL Albumin 3.8 (3.2-5.2) g/dL Globulin 3.5 (2-4) g/dL Albumin/Globulin Ratio 1.1 (1-3) Triglycerides 5981 mg/dL Cholesterol 697 mg/dL LDL Cholesterol mg/dL LDL Cholesterol Direct 86 mg/dL HDL Cholesterol 28.1 mg/dL Lipase 1926 H (11.0-82.0) U/L Urine Color Urine Appearance Urine pH (5-9) Ur Specific [place] (1.010-1.030) Urine Protein (Negative) Urine Ketones (Negative) Urine Blood (Negative) Urine Nitrate (Negative) Urine Bilirubin (Negative) Urine Urobilinogen (Negative) Ur Leukocyte Esterase (Negative) Urine WBC (Auto) (Absent) Urine RBC (Auto) (Absent) Ur Squamous Epith Cells (Absent) Urine Bacteria (Absent) Urine Glucose (Negative) 10/09/17 10/09/17 Range/Units 09:11 10:10 WBC (3.5-10.8) 10^3/ul RBC (4.0-5.4) 10^6/ul Hgb (14.0-18.0) g/dl Hct (42-52) % MCV (80-94) fL MCH (27-31) pg MCHC (31-36) g/dl RDW (10.5-15) % Plt Count (150-450) 10^3/ul MPV (7.4-10.4) um3 Neut % (Auto) (38-83) % Lymph % (Auto) (25-47) % [place] % (Auto) (0-7) % Eos % (Auto) (0-6) % Baso % (Auto) (0-2) % Absolute Neuts (auto) (1.5-7.7) 10^3/ul Absolute Lymphs (auto) (1.0-4.8) 10^3/ul Absolute Monos (auto) (0-0.8) 10^3/ul Absolute Eos (auto) (0-0.6) 10^3/ul Absolute Basos (auto) (0-0.2) 10^3/ul Absolute Nucleated RBC 10^3/ul Nucleated RBC % [place]aux Sodium (133-145) mmol/L Potassium (3.5-5.0) mmol/L Chloride (101-111) mmol/L Carbon Dioxide (22-32) mmol/L Anion Gap (2-11) mmol/L BUN (6-24) mg/dL Creatinine (0.67-1.17) mg/dL Est GFR ( Amer) (>60) Est GFR (Non-Af Amer) (>60) BUN/Creatinine Ratio (8-20) Glucose (70-100) mg/dL Hemoglobin A1c 12.8 H (4.0-5.6) % Lactic Acid (0.5-2.0) mmol/L Calcium (8.6-10.3) mg/dL Iron (50-212) ug/dL TIBC (250-450) mcg/dL % Saturation (15-55) % Unsat Iron Binding ug/dL Ferritin (24-336) ng/mL Total Bilirubin (0.2-1.0) mg/dL AST (13-39) U/L ALT (7-52) U/L Alkaline Phosphatase (34-104) U/L Troponin I (<0.04) ng/mL C-Reactive Protein (< 5.00) mg/L Total Protein (6.4-8.9) g/dL Albumin (3.2-5.2) g/dL Globulin (2-4) g/dL Albumin/Globulin Ratio (1-3) Triglycerides mg/dL Cholesterol mg/dL LDL Cholesterol mg/dL LDL Cholesterol Direct mg/dL HDL Cholesterol mg/dL Lipase (11.0-82.0) U/L Urine Color Yellow Urine Appearance Clear Urine pH 7.0 (5-9) Ur Specific [place] 1.036 H (1.010-1.030) Urine Protein 3+(>=500 mg/dl) H (Negative) Urine Ketones Negative (Negative) Urine Blood Negative (Negative) Urine Nitrate Negative (Negative) Urine Bilirubin Negative (Negative) Urine Urobilinogen Negative (Negative) Ur Leukocyte Esterase Negative (Negative) Urine WBC (Auto) Trace(0-5/hpf) (Absent) Urine RBC (Auto) Trace(0-2/hpf) (Absent) Ur Squamous Epith Cells Present H (Absent) Urine Bacteria Absent (Absent) Urine Glucose 3+(>=500 mg/dl) H (Negative) Diagnostic Imaging: Patient Name: MARIELA DUENAS Medical Record#: [id number] Ordering Physician: Eddie Burnette MD Acct.#: [id number] : 1980 Age: 37 Sex: M Location: EMERGENCY DEPARTMENT Exam Date: 10/09/17 1150 ADM Status: REG ER Order Information: CT ABD/PEL W Accession Number: [id number] CPT: 60434 Indication: Abdominal pain, right upper quadrant pain. Contrast: Administered 130.2 ml of VISAPAQUE 320 mg/ml CT of the abdomen and pelvis was performed after oral and IV contrast administration. Coronal and sagittal reconstructed images were obtained. Lung bases demonstrate some minimal airspace disease in left lung base. This may represent pneumonia. Heart is of normal size without evidence of pericardial effusion. Liver is normal in size. No focal lesions or intrahepatic ductal dilatation is noted. The gallbladder demonstrates no calcified gallstones. No pericholecystic fluid or wall thickening is identified. The common duct is not dilated. The spleen is normal in size. No adrenal masses are noted. The kidneys demonstrate symmetric nephrograms without hydronephrosis. There is diffuse enlargement of the pancreas with peripancreatic fluid noted consistent with acute pancreatitis. The tail of the pancreas enhances less than the remainder of the pancreas and pancreatic necrosis is not excluded. No retroperitoneal adenopathy is noted. No dilated loops of bowel are noted. CT of the pelvis demonstrates no retroperitoneal or pelvic lymphadenopathy. The bladder is unremarkable. No hernias are identified. IMPRESSION: Enlarged edematous pancreas with peripancreatic fluid consistent with the acute pancreatitis. The pancreas appears to BE heterogeneous in density. The pancreatic tail does not appear to significantly enhance and the possibility of pancreatic necrosis should be considered. <Electronically signed by Marie Quesada MD in [place]> 10/09/17 1430 Dictated By: Marie Quesada MD Dictated Date/Time: 10/09/17 1430 Transcribed Date/Time: 10/09/17 1417 Copy to: Assess/Plan/Problems-Billing Assessment: This is a 37 year old male with history of pancreatitis, DM with hyperglycemia, hypertriglyceridemia and medicaltion non-compliance, admitted for abdominal pain and pancreatitis. - Patient Problems (1) Acute pancreatitis Code(s): K85.9 - ACUTE PANCREATITIS, UNSPECIFIED * DO NOT USE * SNOMED Code(s) : 883522106 Comment: - 2/2 hypertriglyceridemia - tolerating clear liquid diet, will advance to soft - CT abdomen as above - GI consult appreciated (2) Diabetes mellitus Code(s): E11.9 - TYPE 2 DIABETES MELLITUS WITHOUT COMPLICATIONS SNOMED Code(s) : 55348064 Comment: - On lispro SS since admission - Can return to home regimen of levemir and lispro at DC - HgB A1c=12.8 this admission (3) Hypertriglyceridemia Code(s): E78.1 - PURE HYPERGLYCERIDEMIA SNOMED Code(s): 255542218 Comment: - Restart crestor and trilipix - Zoug=[id number], does not meet criteria for plasmapheresis at this time (4) GERD (gastroesophageal reflux disease) Code(s): K21.9 - GASTRO-ESOPHAGEAL REFLUX DISEASE WITHOUT ESOPHAGITIS SNOMED Code(s): 928413213 Comment: - continue PPI today (5) Hypokalemia Code(s): E87.6 - HYPOKALEMIA SNOMED Code(s): 32261038 Comment: - Multifactorial (vomiting, renal insufficiency) - Replete today - Needs outpatient follow up (6) Tachycardia Code(s): R00.0 - TACHYCARDIA, UNSPECIFIED SNOMED Code(s): 7484146 Comment: - Resolved with fluids - Will DC tele Status and Disposition: Advance diet this evening, if tolerates, may be DC to home tonight and f/u with PCP by . Counseling and/or Coordination of Care Minutes: coordinated with patient and staff.
[2017-10-11 15:55] VITALS: BP 123/68
--- NOTE | 2017-10-12 11:16 | DS ---
CC: [facility]; Dr. Mendez. * DISCHARGE SUMMARY: DATE OF ADMISSION: 10/09/17 DATE OF DISCHARGE: 10/11/17 PRIMARY CARE PROVIDER: [facility]. ATTENDING FOR THIS ADMISSION: Dr. Mendez. MY ATTENDING FOR TODAY: Dr. Johnny Salamanca.* (DICTATED BY HORACIO SCHWAB NP) HOSPITAL COURSE: This is a 37-year-old male patient with a longstanding history of insulin dependent diabetes mellitus. He has had multiple episodes of pancreatitis as a result of hypertriglyceridemia. The patient has had elevated triglycerides in the past causing pancreatitis at one time over 10, 000. He was not a candidate for plasmapheresis in the past, however, this time , when he was admitted the triglycerides were again over 5000. He was admitted for aggressive fluid rehydration since his blood sugars were also elevated and was treated with regular insulin sliding scale coverage. The patient was kept n.p.o. and again aggressively hydrated. The patient was advanced to clear diet last night, was tolerating without any abdominal pain. Initially, his abdominal pain was 9/10, it is a 0/10 today. The patient tolerated a soft diet this afternoon and expressed his wish to be discharged. The patient does have some issues with insurance. His prescriptions were sent to [facility] for filling until his Medicaid kicks in. DISCHARGE DIAGNOSES: 1. Acute pancreatitis. 2. Hypertriglyceridemia. 3. Insulin dependent diabetes mellitus. 4. Multiple electrolyte imbalances. 5. Hypertension. 6. Intractable abdominal pain. MEDICATIONS AT THE TIME OF DISCHARGE: 1. Lisinopril 20 mg daily. 2. Omeprazole 20 mg daily. 3. Crestor 40 mg daily. 4. Lispro 10 units subcu 3 times a day before meals. 5. Levemir 50 units at bedtime. 6. Trilipix 135 mg daily. DIAGNOSTIC STUDIES/LAB DATA: Chemistries: Sodium 134, potassium 3.3, chloride 103, CO2 26, BUN 6, creatinine 0.57, GFR is 162.7. Glucose ranging between 145 and 195. Calcium 7.7, ionized calcium 4.06, magnesium 1.5. Total bilirubin 0.5. AST 15, ALT 14, alk phos 54, total protein 6.0, albumin 2.7, globulin 3.3. Urinalysis is negative for infectious process. WBC 16.2, RBC is 5.14, hemoglobin 13.7, hematocrit 40. The patient was discharged in stable condition on the 11 of October. Of significant note, his electrolytes will be repeated today, his magnesium, calcium, and potassium. The patient was instructed to follow up with his primary care physician on to have labs to be drawn to ensure his electrolyte imbalances are continuing to resolve. The patient states his understanding of his discharge plan, medications and followup. HORACIO SCHWAB NP [id number]/[facility] #: [id number] CARLYN
== END 2017-10-11 16:42 | disposition home or self-care (01) | DRG 440 ==
LOC: ED 08:49 → SSU 15:56
PROVIDERS: ADMIT Internal Medicine; ATTEND Nurse Practitioner Adult Health
DX: K85.90 Acute pancreatitis without necrosis or infection, unspecified (principal); E11.65 Type 2 diabetes mellitus with hyperglycemia; E66.01 Morbid (severe) obesity due to excess calories; E78.1 Pure hyperglyceridemia; I10 Essential (primary) hypertension; K21.9 Gastro-esophageal reflux disease without esophagitis; D50.9 Iron deficiency anemia, unspecified; R00.0 Tachycardia, unspecified; E87.6 Hypokalemia; Z79.4 Long term (current) use of insulin; Z80.1 Family history of malignant neoplasm of trachea, bronchus and lung; Z87.891 Personal history of nicotine dependence; Z80.6 Family history of leukemia; Z72.89 Other problems related to lifestyle; Z91.14 Patient's other noncompliance with medication regimen; Z68.35 Body mass index [BMI] 35.0-35.9, adult; Z83.49 Family history of other endocrine, nutritional and metabolic diseases
CPT/HCPCS: 36415; 74177; 76705; 80053; 80061; 81003; 81015; 82330; 82728; 83036; 83540; 83550; 83605; 83690; 83721; 83735; 84484; 85025; 86140; 99284; A9270-GY; J0610; J1170; J2405; J3475; J3480; Q9967

== ENCOUNTER 2017-12-26 19:13 | Emergency (ER) | payer SELFPAY ==
[2017-12-26] MEDS ORDERED: Ondansetron INJ* 2 MG/ML VIAL IV ONE (20:01)
[2017-12-26] MEDS ORDERED: Morphine VIAL* 4 MG/ML VIAL (1 ml vial) IV ONE (20:01)
[2017-12-26] MEDS ORDERED: NS 0.9% 1000 ML* 1,000 ML IV ONE (20:01)
[2017-12-26 20:32] LABS: Urine Appearance Clear; Urine Blood Negative (Negative); Urine Color Yellow; Urine Ketones Negative (Negative); Urine Protein 2+(100 mg/dL) (Negative); Urine Specific Gravity 1.035 (1.010-1.030); Urine Urobilinogen Negative (Negative)
--- NOTE | 2017-12-26 20:45 | RAD ---
INDICATION: Right upper quadrant pain. History of pancreatitis. COMPARISON: CT October 02, 2014 TECHNIQUE: Longitudinal and transverse scans of the right upper quadrant were obtained. Doppler interrogation of the hepatic and portal venous system was performed. FINDINGS: Liver: There is hepatomegaly with hepatic steatosis. There are no masses . The liver measures 22.8 cm in cephalocaudal dimension. Vessels: There is normal hepatic and portal venous flow. Bile ducts: There is no evidence of intrahepatic or extrahepatic ductal dilatation. The common duct measures 0.3 cm. Gallbladder: The sonographic appearance of the gallbladder is normal. There is no evidence of cholelithiasis, thickening of the gallbladder wall, or pericholecystic fluid. Pancreas: Pancreas appears prominent without focal mass Right kidney: The right kidney is normal in size and echogenicity. There are no masses or calculi. There is no evidence of hydronephrosis. The right kidney measures 12.3 x 6.1 x 7.6 cm. IVC and aorta: The aorta and superior vena cava appear normal. Fluid: There is no ascites. Other: None. IMPRESSION: HEPATOMEGALY WITH HEPATIC STEATOSIS. NORMAL GALLBLADDER.
--- NOTE | 2017-12-26 20:56 | ED ---
GI/ HPI - HPI Summary HPI Summary: 37-year-old male presents with acute epigastric pain for the past couple hours. He has history of pancreatitis. He states he feels pain as previous pancreatitis. He was nausea vomiting. Denies any fevers. Denies any urgency or frequency. He denies any dysuria. He denies any chest pain or shortness of breath. He has previously had his appendix removed. He denies any blood in his vomit. He states he has not been drinking alcohol. He states he's been following his diet. He states the pain he had today was some soup. He had an episode of pancreatitis in Sep. He also had one 6 months ago that was potentially going to need plamapharesis for and was transferred to [facility]. He states his sugars have been in the 200s. - History of Current Complaint Chief Complaint: EDAbdPain Time Seen by Provider: 12/26/17 19:55 Stated Complaint: ABD PAIN Pain Intensity: 6 - Additional Pertinent History Primary Care Physician: [id number] - Allergy/Home Medications Allergies/Adverse Reactions: Allergies Allergy/AdvReac Type Severity Reaction Status Date / Time No Known Allergies Allergy Verified 04/26/17 13:12 PMH/Surg Hx/FS Hx/Imm Hx Endocrine/Hematology History: Reports: Hx Diabetes - IDDM Cardiovascular History: Reports: Hx Hypertension Denies: Hx Congestive Heart Failure, Hx Pacemaker/ICD GI History: Reports: Hx Gastroesophageal Reflux Disease, Other GI Disorders - Pancreatitis History: Denies: Hx Renal Disease Sensory History: Denies: Hx Contacts or Glasses, Hx Hearing Aid Opthamlomology History: Denies: Hx Contacts or Glasses Psychiatric History: Denies: Hx Panic Disorder - Surgical History Surgery Procedure, Year, and Place: Appendectomy Infectious Disease History: No Infectious Disease History: Denies: Traveled Outside the [place] in Last 30 Days - Family History Known Family History: Positive: Other - lung cancer - Social History Alcohol Use: Rare Substance Use Type: Reports: None Smoking Status (MU): Light Every Day Tobacco Smoker Type: Cigarettes Review of Systems Negative: Fever Negative: Chest Pain Negative: Shortness Of Breath Positive: Abdominal Pain - epigastric, Vomiting, Nausea. Negative: Diarrhea All Other Systems Reviewed And Are Negative: Yes Physical Exam Triage Information Reviewed: Yes Vital Signs On Initial Exam: Initial Vitals Temp Pulse Resp BP Pulse Ox 98 F 105 20 160/107 97 12/26/17 19:18 12/26/17 19:18 12/26/17 19:18 12/26/17 19:18 12/26/17 19:18 Vital Signs Reviewed: Yes Appearance: Positive: Pain Distress Skin: Positive: Warm, Dry Head/Face: Positive: Normal Head/Face Inspection Eyes: Positive: Normal, Conjunctiva Clear Respiratory/Lung Sounds: Positive: Clear to Auscultation, Breath Sounds Present Cardiovascular: Positive: Normal, RRR Abdomen Description: Positive: Soft, Other: - tenderness RUQ Bowel Sounds: Positive: Present Musculoskeletal: Positive: Normal Neurological: Positive: Normal Psychiatric: Positive: Normal Diagnostics - Vital Signs Vital Signs Temp Pulse Resp BP Pulse Ox 12/26/17 20:14 22 12/26/17 19:28 103 93 12/26/17 19:18 98 F 105 20 160/107 97 - Laboratory Lab Results: Lab Results 12/26/17 12/26/17 Range/Units 20:12 20:15 Lactic Acid 0.8 (0.5-2.0) mmol/L Urine Color Yellow Urine Appearance Clear Urine pH 6.0 (5-9) Ur Specific [place] 1.035 H (1.010-1.030) Urine Protein 2+(100 mg/dl) A (Negative) Urine Ketones Negative (Negative) Urine Blood Negative (Negative) Urine Nitrate Negative (Negative) Urine Bilirubin Negative (Negative) Urine Urobilinogen Negative (Negative) Ur Leukocyte Esterase Negative (Negative) Urine WBC (Auto) Trace(0-5/hpf) (Absent) Urine RBC (Auto) Absent (Absent) Urine Bacteria Absent (Absent) Urine Glucose 3+(>=500 mg/dl) A (Negative) Result Diagrams: 12/26/17 20:12 12/26/17 20:12 Lab Statement: Any lab studies that have been ordered have been reviewed, and results considered in the medical decision making process. - CT abd CT Interpretation: Positive (See Comments) - Enlarged pancreas with surrounding inflammatory changes compatible with acute pancreatitis. in addition there is a 3.8 centimeter ill-defined area of hypoenhancement in the pancreatic tail concerning for necrotizing pancreatitis CT Interpretation Completed By: Radiologist Re-Evaluation - Re-Evaluation First Eval Re-Evaluation Time: 21:55 Change: Improved Comment: feeling better after dilaudid GIGU Course/Dx - Course Course Of Treatment: 37-year-old male presents with acute epigastric pain for the past couple hours. He has history of pancreatitis. He states he feels same pain as previous episodes. He was nausea vomiting. Denies any fevers. Denies any urgency or frequency. He denies any dysuria. He denies any chest pain or shortness of breath. He has previously had his appendix removed. He denies any blood in his vomit. He states he has not been drinking alcohol. He states he's been following his diet. He states the pain he had today was some soup. He had an episode of pancreatitis in Sep. He also had one 6 months ago that was potentially going to need plamapharesis for and was transferred to [facility]. He states his sugars have been in the 200s. on exam tenderness epigastric region. labs wbc 12. sodium 114. gallbladder u/s show enlarged pancreas. discussed with hospitalist said can not do plasmapheresis here so suggest transfer patient. triglycerides [address]. ct shows enlarge pancreatitis with 3.8cm ill defined are concerning for necrotizing pancreatitis. discussed with [facility] since no beds on floor will transfer to ED at [facility]. - Diagnoses Differential Diagnoses - Male: Gall Bladder Disease, Pancreatitis, Urinary Tract Infection Provider Diagnoses: Acute pancreatitis, Hyponatremia Discharge - Sign-Out/Discharge Documenting (check all that apply): Discharge/Admit/Transfer - Discharge Plan Condition: Stable Disposition: TRANS HIGHER LVL OF CARE FAC Referrals: JULEE Hector [Primary Care Provider] - - Billing Disposition and Condition Condition: STABLE Disposition: EMTALA
[2017-12-26 20:57] LABS: Red Blood Count 4.76 10^6/ul (4.0-5.4); White Blood Count 12.9 10^3/ul (3.5-10.8)
[2017-12-26 20:58] LABS: Hemoglobin 12.1 g/dl (14.0-18.0)
[2017-12-26 20:59] LABS: Hematocrit 36 % (42-52); Mean Corpuscular Hemoglobin 25 pg (27-31); Mean Corpuscular Volume 76 fL (80-94)
[2017-12-26 21:00] LABS: Mean Corpuscular HGB Conc 34 g/dl (31-36); Mean Platelet Volume 9.4 um3 (7.4-10.4); Platelet Count 239 10^3/ul (150-450); Red Cell Distribution Width 17 % (10.5-15)
[2017-12-26] MEDS ORDERED: HYDROmorphone INJ* 2 MG/ML CARPUJECT SYRINGE IV SLOW PU ONE ×2 (21:01→21:20)
[2017-12-26 21:04] LABS: EGFR Non-African American 173.1 (>60)
[2017-12-26 21:21] LABS: Monocytes % 7 % (0-7)
[2017-12-26] MEDS: NS 0.9% 1000 ML* 2,000 ML IV ONE ×2 (21:26→23:33)
[2017-12-26] MEDS ORDERED: Iodixanol 320 (CONTRAST) 100 ML SDV IV ONE (22:06)
[2017-12-27] MEDS ORDERED: HYDROmorphone INJ* 2 MG/ML CARPUJECT SYRINGE IV SLOW PU ONE (00:10)
[2017-12-27 00:43] VITALS: BP 175/117
--- NOTE | 2017-12-27 07:39 | RAD ---
INDICATION: Right upper quadrant abdominal pain. COMPARISON: Comparison is made with a prior CT of the abdomen and pelvis from October 09, 2017. TECHNIQUE: A CT scan of the abdomen and pelvis was performed with intravenous and oral contrast following intravenous injection of 136 ml of Visipaque 320 nonionic contrast. Contiguous axial sections were obtained from the lung bases through the symphysis pubis. Images were reconstructed in the coronal and sagittal planes. FINDINGS: There is mild dependent bilateral lower lobe subsegmental atelectasis. No pleural effusion is present. The liver and spleen are moderately enlarged. The liver is decreased in attenuation consistent with fatty infiltration there is more focal decreased density in the region of the caudate lobe possibly right present more focal fatty infiltration which appears new from the prior study. No calcified gallstones or gallbladder wall thickening is seen. The portal vein is enlarged and there are varices in the splenic hilum most consistent with portal hypertension. The pancreas is diffusely and large and edematous with surrounding interstitial inflammatory change and fluid around the pancreas consistent with acute pancreatitis. In addition there is a focal area of decreased attenuation in the pancreatic tail which was in an area of relatively decreased enhancement on the prior study suspicious for necrosis. There are other less well-defined patchy areas of decreased enhancement within the pancreatic body and neck possibly also representing areas of necrosis. The splenic vein appears occluded. The kidneys and adrenal glands are normal in size. No hydronephrosis is seen. No significant focal renal abnormality is seen. The aorta is normal in caliber and demonstrates homogeneous contrast opacification. No significant enlarged retroperitoneal lymph nodes are seen. There appears be a small hiatal hernia. The stomach, small and large bowel appear nondistended. The patient is status post appendectomy by history. There are few scattered diverticuli within the colon. There is no evidence for diverticulitis or colitis. No free intraperitoneal air or fluid is seen. No significant focal osseous abnormality is seen. IMPRESSION: 1. FINDINGS CONSISTENT WITH ACUTE PANCREATITIS. THERE IS A FOCAL AREA OF DECREASED DENSITY IN THE PANCREATIC TAIL WHICH DEMONSTRATED DECREASED ENHANCEMENT ON THE PRIOR CT STUDY SUSPICIOUS FOR NECROSIS. IN ADDITION THERE ARE LESS WELL-DEFINED AREAS OF DECREASED DENSITY IN THE PANCREATIC BODY AND NECK ALSO SUSPICIOUS FOR NECROSIS. THERE IS ALSO OCCLUSION OF THE SPLENIC VEIN. 2. HEPATOSPLENOMEGALY AND HEPATIC STEATOSIS. 3. THE PORTAL VEIN IS ENLARGED AND THERE ARE VARICES IN THE SPLENIC HILUM MOST CONSISTENT WITH PORTAL HYPERTENSION.
== END 2017-12-27 00:41 | disposition short-term general hospital (02) ==
LOC: ED 19:13
DX: K85.90 Acute pancreatitis without necrosis or infection, unspecified (principal); E87.1 Hypo-osmolality and hyponatremia; R16.2 Hepatomegaly with splenomegaly, not elsewhere classified; K76.0 Fatty (change of) liver, not elsewhere classified; I86.8 Varicose veins of other specified sites; F17.210 Nicotine dependence, cigarettes, uncomplicated
CPT/HCPCS: 36415; 74177; 76705; 80053; 81003; 81015; 82150; 83605; 83690; 84478; 85025; 86140; 87086; 96361; 96374; 96375; 99285; J1170; J2270; J2405; Q9967

== ENCOUNTER 2018-01-15 23:50 | Inpatient (IN) | payer OTHER ==
[2018-01-16] MEDS ORDERED: Morphine INJ* 10 MG/ML 1 ML CARPUJECT IV ONE (00:31)
[2018-01-16] MEDS ORDERED: Morphine VIAL* 4 MG/ML VIAL (1 ml vial) IV ONE (00:39)
[2018-01-16] MEDS: NS 0.9% 1000 ML* 3,000 ML IV ONE ×3 (00:46→03:12)
[2018-01-16] MEDS ORDERED: Ondansetron INJ* 2 MG/ML VIAL IV ONE (00:50)
[2018-01-16 01:43] LABS: EGFR Non-African American 105.4 (>60)
[2018-01-16 01:53] LABS: Hematocrit 36 % (42-52); Hemoglobin 13.4 g/dl (14.0-18.0); Mean Corpuscular HGB Conc 38 g/dl (31-36); Mean Corpuscular Hemoglobin 29 pg (27-31); Mean Corpuscular Volume 76 fL (80-94); Mean Platelet Volume 10.8 um3 (7.4-10.4); Platelet Count 144 10^3/ul (150-450); Red Blood Count 4.66 10^6/ul (4.0-5.4); Red Cell Distribution Width 17 % (10.5-15); White Blood Count 10.6 10^3/ul (3.5-10.8)
[2018-01-16 01:56] LABS: ABS Basophils 0.2 10^3/ul (0-0.2); ABS Eosinophils 0.2 10^3/ul (0-0.6); ABS Monocytes 0.3 10^3/ul (0-0.8); ABS Neutrophils 8.9 10^3/ul (1.5-7.7)
[2018-01-16 02:18] LABS: ABS Nucleated RBC 0 10^3/ul; Eosinophil % 1.6 % (0-6); Lymphocyte % 9.1 % (25-47); Nucleated Red Blood Cells % 0
[2018-01-16] MEDS ORDERED: Dextrose 50% Syringe 50 ML* 25 GM/50 ML SYRINGE IV PUSH PRN ×2 (02:37→03:27)
[2018-01-16] MEDS ORDERED: Insulin LISPRO* 1 UNITS UNIT SUBCUT ONE (02:37)
--- NOTE | 2018-01-16 02:54 | ED ---
Marcos Lyn Julia, scribed for Eddie Vasquez MD on 01/16/18 at 0039 . Abdominal Pain/Male - HPI Summary HPI Summary: This patient is a 37 year old M presenting to [facility] with a chief complaint of diffuse abdominal pain radiating to the back since 22:30 this evening with nausea. Patient states that he had "a couple sodas today". The patient rates the pain 7/10 in severity. PMHx of pancreatitis and DM. Pancreatitis related pain typically presents as upper abdominal pain. - History of Current Complaint Chief Complaint: EDAbdPain Stated Complaint: ABD PAIN Time Seen by Provider: 01/16/18 00:28 Hx Obtained From: Patient Onset/Duration: Sudden Onset, Lasting Hours Timing: Constant Pain Intensity: 7 Pain Scale Used: 0-10 Numeric Location: Diffuse Radiates: No Associated Signs And Symptoms: Positive: Negative Similar Episode/Dx As:: pancreatitis - Allergies/Home Medications Allergies/Adverse Reactions: Allergies Allergy/AdvReac Type Severity Reaction Status Date / Time No Known Allergies Allergy Verified 01/15/18 23:54 PMH/Surg Hx/FS Hx/Imm Hx Endocrine/Hematology History: Reports: Hx Diabetes - IDDM Cardiovascular History: Reports: Hx Hypertension Denies: Hx Congestive Heart Failure, Hx Pacemaker/ICD GI History: Reports: Hx Gastroesophageal Reflux Disease, Other GI Disorders - Pancreatitis History: Denies: Hx Renal Disease Sensory History: Denies: Hx Contacts or Glasses, Hx Hearing Aid Opthamlomology History: Denies: Hx Contacts or Glasses Psychiatric History: Denies: Hx Panic Disorder - Surgical History Surgery Procedure, Year, and Place: Appendectomy Infectious Disease History: No Infectious Disease History: Denies: Traveled Outside the [place] in Last 30 Days - Family History Known Family History: Positive: Other - lung cancer - Social History Alcohol Use: Rare Substance Use Type: Reports: None Smoking Status (MU): Light Every Day Tobacco Smoker Type: Cigarettes Review of Systems Negative: Fever Positive: Abdominal Pain, Nausea All Other Systems Reviewed And Are Negative: Yes Physical Exam - Summary Physical Exam Summary: Appearance: Well-appearing, Well-nourished, Skin: Warm, dry, no obvious rash Eyes: sclera anicteric, no conjunctival pallor ENT: mucous membranes moist, pharynx appears normal Neck: Supple, nontender Respiratory: Clear to auscultation, no signs of respiratory distress Cardiovascular: Normal S1, S2. No murmurs. Normal distal pulses in tibial and radial bilaterally. Abdomen: Soft, diffuse tenderness, no bowel sounds Musculoskeletal: Normal, Strength/ROM Intact Neurological: A&Ox3, awake and alert, mentation is normal, speech is fluent and appropriate Psychiatric: affect is normal, does not appear anxious or depressed Triage Information Reviewed: Yes Vital Signs On Initial Exam: Initial Vitals Temp Pulse Resp BP Pulse Ox 97.2 F 99 20 174/106 96 01/15/18 23:52 01/15/18 23:52 01/15/18 23:52 01/15/18 23:52 01/15/18 23:52 Vital Signs Reviewed: Yes Diagnostics - Vital Signs Vital Signs Temp Pulse Resp BP Pulse Ox 01/15/18 23:52 97.2 F 99 20 174/106 96 - Laboratory Lab Results: Lab Results 01/16/18 01/16/18 Range/Units 01:00 01:00 WBC 10.6 (3.5-10.8) 10^3/ul RBC 4.66 (4.0-5.4) 10^6/ul Hgb 13.4 L (14.0-18.0) g/dl Hct 36 L (42-52) % MCV 76 L (80-94) fL MCH 29 (27-31) pg MCHC 38 H (31-36) g/dl RDW 17 H (10.5-15) % Plt Count 144 L (150-450) 10^3/ul MPV 10.8 H (7.4-10.4) um3 Neut % (Auto) 84.2 H (38-83) % Lymph % (Auto) 9.1 L (25-47) % Charles % (Auto) 2.7 (0-7) % Eos % (Auto) 1.6 (0-6) % Baso % (Auto) 2.4 H (0-2) % Absolute Neuts (auto) 8.9 H (1.5-7.7) 10^3/ul Absolute Lymphs (auto) 1.0 (1.0-4.8) 10^3/ul Absolute Monos (auto) 0.3 (0-0.8) 10^3/ul Absolute Eos (auto) 0.2 (0-0.6) 10^3/ul Absolute Basos (auto) 0.2 (0-0.2) 10^3/ul Absolute Nucleated RBC 0 10^3/ul Nucleated RBC % 0 Sodium 122 L (139-145) mmol/L Chloride 88 L (101-111) mmol/L Carbon Dioxide 24 (22-32) mmol/L Anion Gap 10 (2-11) mmol/L Creatinine 0.83 (0.67-1.17) mg/dL Est GFR ( Amer) 135.6 (>60) Est GFR (Non-Af Amer) 105.4 (>60) BUN/Creatinine Ratio Not Reportable Glucose 506 H* (70-100) mg/dL Calcium 9.0 (8.6-10.3) mg/dL Total Bilirubin 0.90 (0.2-1.0) mg/dL Alkaline Phosphatase 129 H (34-104) U/L Total Protein 7.5 (6.4-8.9) g/dL Albumin 4.2 (3.2-5.2) g/dL Globulin 3.3 (2-4) g/dL Albumin/Globulin Ratio 1.3 (1-3) Lipase 517 H (11.0-82.0) U/L Result Diagrams: 01/16/18 01:00 01/16/18 01:00 Lab Statement: Any lab studies that have been ordered have been reviewed, and results considered in the medical decision making process. Abdominal Pain Fem Course/Dx - Diagnoses Differential Diagnosis/HQI/PQRI: Hepatitis, Pancreatitis, Peptic Ulcer Disease Provider Diagnoses: Pancreatitis, Diabetes, Hyperglycemia due to type 1 diabetes mellitus, Acute pancreatitis - Provider Notifications Discussed Care Of Patient With: Heri Savage - hospitalist Time Discussed With Above Provider: 02:40 Instructed by Provider To: Admit As Inpatient Discharge - Sign-Out/Discharge Documenting (check all that apply): Discharge/Admit/Transfer - Discharge Plan Condition: Fair Disposition: ADMITTED TO [facility] Referrals: No Primary Care Phys,NOPCP [Primary Care Provider] - - Billing Disposition and Condition Condition: FAIR Disposition: [facility] [place] The documentation as recorded by the Marcos sims Julia accurately reflects the service I personally performed and the decisions made by me, Eddie Vasquez MD.
[2018-01-16] MEDS ORDERED: Ondansetron INJ* 2 MG/ML VIAL IV PRN (03:34)
[2018-01-16] MEDS: Pantoprazole IV* 40 MG IV SCH ×2 (03:41→10:25)
[2018-01-16] MEDS: HYDROmorphone INJ* 2 MG/ML CARPUJECT SYRINGE IV SLOW PU PRN ×2 (03:59→12:33)
[2018-01-16] MEDS ORDERED: Insulin LISPRO* 1 UNITS UNIT SUBCUT SCH (04:00)
[2018-01-16] MEDS ORDERED: NS 0.9% 1000 ML* 1,000 ML IV SCH (05:00)
[2018-01-16] MEDS: Insulin GLARGINE(*) 1 UNITS UNIT SUBCUT SCH (06:08)
[2018-01-16] MEDS: NS 0.9% 1000 ML* 1,000 ML IV SCH ×3 (06:09→21:29)
[2018-01-16] MEDS: Enoxaparin(*) 40 MG/0.4 ML SYR SUBCUT SCH (06:09)
--- NOTE | 2018-01-16 07:13 | HP ---
ADMITTING HISTORY AND PHYSICAL: DATE OF ADMISSION: 01/16/18. CHIEF COMPLAINT/REASON FOR ADMISSION: Diffuse abdominal pain radiating to the back since 10:30 this evening. HISTORY OF PRESENT ILLNESS/HOSPITAL COURSE: The patient is a 37-year-old gentleman with history of recurrent pancreatitis secondary to hypertriglyceridemia, diabetes mellitus type 2, GERD, and morbid obesity, who mentions that his abdominal pain started around 10:30 radiation to the back this evening accompanied by nausea. He stated that he has had a couple of sodas today and initially rated his pain at around 7 over 10 in severity. Persistence of his signs and symptoms prior to his presentation to the ED, where he had been given one time dose of insulin Lispro 3 L of normal saline bolus as well as one time 10 mg IV morphine dose along with ondansetron 8 mg x1. PAST MEDICAL/SURGICAL HISTORY: Pancreatitis, hypertriglyceridemia, GERD, diabetes mellitus type 2, morbid obesity, and status post appendectomy. MEDICATIONS: His home medications are as follows: 1. Insulin lispro 10 units subcu t.i.d. 2. Insulin detemir 50 units subcu q.h.s. 3. Choline fenofibrate 135 mg p.o. daily. 4. Omeprazole capsule 20 mg p.o. daily. ALLERGIES: NKDA. FAMILY HISTORY: The patient's father in a car crash with no known past medical history. The patient's mother has hyperlipidemia and the patient's paternal grandfather of lung cancer. The patient's uncle has leukemia. SOCIAL HISTORY: The patient is a previous tobacco user, quit smoking back in 2016 after approximately 20 year pack history. The patient drinks occasional alcohol. No drug use and works at [employer] and has been from his and has two children. REVIEW OF SYSTEMS: The patient still complains of significant abdominal pain and with moaning when patient is being evaluated other than severe abdominal pain with radiation to the back as described. The patient denied any recent headaches, dizziness, fevers or chills, nausea, vomiting, chest pain, shortness of breath, increased cough and/or sputum production, diarrhea or constipation, pain and/or increased frequency on urination, myalgias, arthralgias, throat pain, or new skin lesions. The rest of the 14-point review of systems are otherwise unremarkable. PHYSICAL EXAMINATION GENERAL APPEARANCE: The patient is awake, alert, and oriented x3, in obvious pain during my evaluation. VITAL SIGNS: Reveals a most recent vitals signs of records with blood pressure of 142/89, 94% saturation on room air, 87 beats per minute heart rate, respiratory rate of 16. HEENT: Normocephalic, atraumatic. PERRLA. Extraocular muscles intact. Negative for icterus. Moist oral mucosa. Negative throat erythema. NECK: Soft and supple with no cervical lymphadenopathy, no JVD. CHEST: Clear to auscultation bilaterally. Good air entry. No wheezes, rales, or rhonchi. HEART: S1, S2 within normal limits. Regular rate and rhythm. No murmurs, rubs , or gallops. ABDOMEN: Soft, nondistended, tender especially in the epigastric area. Normoactive bowel sounds x4 quadrants. EXTREMITIES: No cyanosis, clubbing, nor edema. PSYCHIATRIC: No active psychosis, depression, suicidal or homicidal ideations. SKIN: Warm to touch. LABORATORY DATA: Laboratory data has been reviewed. There is no imaging studies done. ASSESSMENT AND PLAN: 1. Recurrent acute pancreatitis, likely secondary to hypertriglyceridemia. We will check fasting lipid levels. We will hold p.o. meds and we will place the patient on n.p.o. Consider restarting the patient on fenofibrate in the a.m. if triglyceride level is above or very 500 to 1000. Continue IV fluids ordered in the ED and once this bolus is done to start at the rate of 200 cc per hour given the patient is young and likely to tolerate this high volume. We will also check and add on LFT tests given BMP was only ordered in the ED. He does have a diagnostic lipase level of at least three times the upper limits of normal. We will place the patient on Dilaudid IV p.r.n. with appropriate holding orders and we will continue watchful waiting. 2. Diabetes mellitus type 2, uncontrolled, likely secondary to reactive cause given above pain given he patient will unlikely be unable to eat for at least 1 or 2 days. We will decrease the units of insulin detemir by a half and we will support with q.6 p.r.n., of insulin lispro. We will check fingersticks q.6. 3. Obesity. Advised lifestyle modifications and we will check TSH. Also, important for evaluation of euvolemic hyponatremia. 4. Euvolemic hyponatremia. On review of his medical records, his sodium levels were lower on 12/26/17 with a level of 114. It is likely that his acute onset of abdominal pain may have caused SIADH and unfortunately given his requirements for fluids, given his acute pancreatitis, fluid restriction is not an option at this time. We will recheck sodium levels through CMP in a few hours and we will defer with primary team following the patient for any adjustment of fluid needs. We will check urine lytes, serum and urine osmolalities. 5. Gastroesophageal reflex disease. We will hold p.o. PPI and we will place him on IV PPI as ordered. 6. DVT prophylaxis. We will place the patient on Lovenox and we will continue watchful waiting. 7. Disposition. As above. [id number]/CPS #: [id number] MTDD
[2018-01-16] MEDS ORDERED: Iodixanol* (CONTRAST) 320 MG/ML 100 ML SDV IV SCH (11:35)
[2018-01-16] MEDS ORDERED: Ondansetron 40 MG VIAL* 2 MG/ML 20 ML VIAL IV PRN (11:45)
--- NOTE | 2018-01-16 11:57 | PN ---
Hospitalist Progress Note Date of Service: 01/16/18 Patient states pain improving with fluids and bowel rest. Will re CT scan to see if he has resolution of previously noted necrosis on 12/26 prior to his being transferred to [facility]. Reinforced the need for compliance with outpatient medical regimen to prevent continued repeated pancreatitis.
[2018-01-16] MEDS: Insulin LISPRO* 1 UNITS UNIT SUBCUT SCH ×2 (12:43→18:21)
--- NOTE | 2018-01-16 15:44 | RAD ---
CLINICAL HISTORY: Acute pancreatitis COMPARISON: December 26, 2014 TECHNIQUE: Multiple contiguous axial CT scans were obtained of the abdomen and pelvis after the administration of intravenous contrast. Coronal and sagittal multiplanar reformations are submitted for review. Oral contrast was administered. Delayed images were obtained through the abdomen. FINDINGS: LUNG BASES: The lung bases are clear. LIVER: The liver is diffusely low in attenuation compared to the spleen. There are no focal hepatic parenchymal masses. Liver measures 23 cm in long axis. BILE DUCTS: There is no intrahepatic or extrahepatic biliary dilatation. GALLBLADDER: The gallbladder is normal, without pericholecystic inflammatory change. PANCREAS: Again noted is diffuse edema of the pancreas with peripancreatic inflammatory change. There are areas of hypoattenuation within the pancreatic neck and body consistent with areas of necrosis. These have developed from the previous examination, measuring up to 2.5 and 3.9 cm in size respectively. 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 Collateral vessels from the superior mesenteric vein to the splenic hilum are noted. SPLEEN: The spleen measures 16.6 cm in long axis. UPPER GI TRACT: Evaluation of the gastrointestinal tract is limited by incomplete gastric distention. The upper GI tract is unremarkable. SMALL BOWEL AND MESENTERY: The small bowel is normal in contour, course, and caliber. There is no obstruction or dilatation. There is stranding of the mesenteric fat around the pancreas COLON: The colon is normal in contour, course, caliber. There is no pericolonic inflammatory change. ADRENALS: Normal bilaterally. KIDNEYS: The kidneys are normal in shape, size, contour, and axis. There is no hydronephrosis or nephrolithiasis. BLADDER: The bladder is incompletely distended but is grossly normal. PELVIC ORGANS: The prostate gland is normal. The seminal vesicles are symmetric. AORTA: The aorta is normal. IVC: Unremarkable LYMPH NODES: There is no lymphadenopathy by size criteria. ABDOMINAL WALL: There is no evidence for abdominal wall hernia. BONES AND SOFT TISSUES: There are mild diffuse degenerative changes. OTHER: None IMPRESSION: 1. AGAIN NOTED IS PANCREATIC EDEMA WITH PERIPANCREATIC INFLAMMATORY CHANGE CONSISTENT WITH THE HISTORY OF ACUTE PANCREATITIS. 2. THERE HAS BEEN PROGRESSION OF AREAS OF NECROSIS WITHIN THE PANCREATIC NECK AND BODY. 3. 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 THERE ARE COLLATERAL VESSELS FROM THE SUPERIOR MESENTERIC VEIN TO THE SPLENIC HILUM. 4. HEPATOMEGALY WITH FATTY INFILTRATION OF THE LIVER. 5. SPLENOMEGALY.
[2018-01-17] MEDS: Insulin LISPRO* 1 UNITS UNIT SUBCUT SCH ×2 (00:29→05:26)
--- NOTE | 2018-01-17 01:00 | PN ---
Hospitalist Progress Note Date of Service: 01/17/18 Called by RN today given he noticed pt's RR to have increased in low 30s for the past hour, yet the patient appeared comfortable with the rest of VS stable without any SOB. Given pt has severe acute pancreatitis due to hypertriglyceredemia, will order CXR and ABG to further rule out complications such as ARDS and/or metabolic acidosis that may complicate this picture. If either are present with TG level in the 3,000, consider apheresis vs. Insulin gtt w/D5 to further lower TG.
[2018-01-17] MEDS: Enoxaparin(*) 40 MG/0.4 ML SYR SUBCUT SCH (04:48)
[2018-01-17] MEDS: Insulin GLARGINE(*) 1 UNITS UNIT SUBCUT SCH (04:49)
[2018-01-17] MEDS: NS 0.9% 1000 ML* 1,000 ML IV SCH (05:15)
[2018-01-17 06:19] LABS: ABS Basophils 0 10^3/ul (0-0.2); ABS Eosinophils 0.1 10^3/ul (0-0.6); ABS Monocytes 0.2 10^3/ul (0-0.8); ABS Nucleated RBC 0 10^3/ul; Eosinophil % 2.6 % (0-6); Hematocrit 28 % (42-52); Hemoglobin 9.5 g/dl (14.0-18.0); Lymphocyte % 23.3 % (25-47); Mean Corpuscular HGB Conc 35 g/dl (31-36); Mean Corpuscular Hemoglobin 26 pg (27-31); Mean Corpuscular Volume 76 fL (80-94); Mean Platelet Volume 9.4 um3 (7.4-10.4); Nucleated Red Blood Cells % 0.1; Platelet Count 92 10^3/ul (150-450); Red Blood Count 3.61 10^6/ul (4.0-5.4); Red Cell Distribution Width 17 % (10.5-15); White Blood Count 4.3 10^3/ul (3.5-10.8)
[2018-01-17 06:30] LABS: EGFR Non-African American 198.4 (>60)
--- NOTE | 2018-01-17 07:42 | RAD ---
INDICATION: Increased respiratory rate. COMPARISON: Comparison is made with a prior study from every 2014. TECHNIQUE: Dual-energy PA and lateral views of the chest were obtained. FINDINGS: The heart is within normal limits in size. Mediastinal and hilar contours appear within normal limits. The lungs are underinflated and clear. No pleural effusion is seen. IMPRESSION: NO EVIDENCE FOR ACTIVE CARDIOPULMONARY DISEASE.
[2018-01-17] MEDS: Pantoprazole IV* 40 MG IV SCH (07:58)
[2018-01-17] MEDS: D5W NS 0.9% 20Meq KCL 1000 ML* 1,000 ML IV SCH ×2 (09:55→15:54)
[2018-01-17] MEDS: INSULIN IVPB SCH (09:57)
[2018-01-17] MEDS ORDERED: D5W NS 0.9% 20Meq KCL 1000 ML* 1,000 ML IV SCH (17:53)
--- NOTE | 2018-01-17 18:01 | PN ---
Subjective Date of Service: 01/17/18 Interval History: Patient seen and examined in AM and then re-examined this evening. This morning , patient transferred to ICU for insulin drip and closer monitoring. Patient's pain is controlled rate 0/10, denies n/v, had normal bowel movement this morning. Denies SOB, no chest pain, no further complaints. Objective Active Medications: Dextrose (D50w Syringe 50 Ml*) 12.5 gm IV PUSH .FOR FS < 60 - SS PRN PRN Reason: FS < 60 Enoxaparin Sodium (Lovenox(*)) 40 mg SUBCUT 0600 [facility] Last Admin: 01/17/18 04:48 Dose: 40 mg Hydromorphone HCl (Dilaudid Inj*) 1 mg IV SLOW PU Q4H PRN PRN Reason: PAIN Last Admin: 01/16/18 12:33 Dose: 1 mg Insulin Human Regular (Insulin Regular Ivpb) 100 units in 100 mls @ 10.07 mls/ hr IVPB Q10H COBY; 0.1 UNITS/KG/HR PRN Reason: Protocol Last Admin: 01/17/18 09:57 Dose: 10.07 mls/hr Potassium Chloride/Dextrose (D5w Ns 0.9% 20meq Kcl 1000 Ml*) 1,000 mls @ 225 mls/hr IV PER RATE [facility] Iodixanol (Visipaque* 320 (Contrast)) 126 ml IV ONCE [facility] Stop: 01/18/18 11:34 Last Admin: 01/16/18 15:38 Dose: 126 ml Mupirocin (Bactroban 2 % Oint*) 1 applic TOPICAL Q8H COBY PRN Reason: Protocol Stop: 01/22/18 16:59 Ondansetron HCl (Zofran 40 Mg Vial*) 4 mg IV Q6H PRN PRN Reason: NAUSEA Last Admin: 01/16/18 12:33 Dose: 4 mg Pantoprazole Sodium (Protonix Iv*) 40 mg IV DAILY [facility] Last Admin: 01/17/18 07:58 Dose: 40 mg Vital Signs - 8 hr 01/17/18 01/17/18 01/17/18 10:00 10:15 10:30 Temperature Pulse Rate 84 83 83 Respiratory 21 21 19 Rate Blood Pressure 131/72 103/51 107/56 (mmHg) O2 Sat by Pulse 95 95 94 Oximetry 01/17/18 01/17/18 01/17/18 10:45 11:00 12:00 Temperature 98.4 F Pulse Rate 81 83 80 Respiratory 25 20 16 Rate Blood Pressure 100/54 112/70 97/43 (mmHg) O2 Sat by Pulse 93 96 97 Oximetry 01/17/18 01/17/18 01/17/18 13:00 14:00 14:01 Temperature Pulse Rate 83 86 87 Respiratory 17 19 18 Rate Blood Pressure 122/75 120/72 (mmHg) O2 Sat by Pulse 96 97 97 Oximetry 01/17/18 01/17/18 01/17/18 15:00 16:00 17:00 Temperature 98.1 F Pulse Rate 80 81 82 Respiratory 23 23 18 Rate Blood Pressure 120/57 124/71 126/82 (mmHg) O2 Sat by Pulse 96 96 95 Oximetry Oxygen Devices in Use Now: None Appearance: Alert, NAD Eyes: No Scleral Icterus, PERRLA Ears/Nose/Mouth/Throat: NL Teeth, Lips, Gums, Mucous Membranes Moist Neck: NL Appearance and Movements; NL JVP, Trachea Midline Respiratory: Symmetrical Chest Expansion and Respiratory Effort, Clear to Auscultation Cardiovascular: NL Sounds; No Murmurs; No JVD, RRR, No Edema Abdominal: NL Sounds; No Tenderness; No Distention, No Hepatosplenomegaly Extremities: No Edema, No Clubbing, Cyanosis Skin: No Rash or Ulcers Neurological: Alert and Oriented x 3, NL Sensation, NL Muscle Strength and Tone Nutrition: Taking PO's, - - tolerating CLD Result Diagrams: 01/17/18 05:58 01/17/18 05:58 Additional Lab and Data: Lab Results 01/16/18 01/16/18 Range/Units 01:00 01:00 WBC 10.6 (3.5-10.8) 10^3/ul RBC 4.66 (4.0-5.4) 10^6/ul Hgb 13.4 L (14.0-18.0) g/dl Hct 36 L (42-52) % MCV 76 L (80-94) fL MCH 29 (27-31) pg MCHC 38 H (31-36) g/dl RDW 17 H (10.5-15) % Plt Count 144 L (150-450) 10^3/ul MPV 10.8 H (7.4-10.4) um3 Neut % (Auto) 84.2 H (38-83) % Lymph % (Auto) 9.1 L (25-47) % [place] % (Auto) 2.7 (0-7) % Eos % (Auto) 1.6 (0-6) % Baso % (Auto) 2.4 H (0-2) % Absolute Neuts (auto) 8.9 H (1.5-7.7) 10^3/ul Absolute Lymphs (auto) 1.0 (1.0-4.8) 10^3/ul Absolute Monos (auto) 0.3 (0-0.8) 10^3/ul Absolute Eos (auto) 0.2 (0-0.6) 10^3/ul Absolute Basos (auto) 0.2 (0-0.2) 10^3/ul Absolute Nucleated RBC 0 10^3/ul Nucleated RBC % 0 Sodium 122 L (139-145) mmol/L Chloride 88 L (101-111) mmol/L Carbon Dioxide 24 (22-32) mmol/L Anion Gap 10 (2-11) mmol/L Creatinine 0.83 (0.67-1.17) mg/dL Est GFR ( Amer) 135.6 (>60) Est GFR (Non-Af Amer) 105.4 (>60) BUN/Creatinine Ratio Not Reportable Glucose 506 H* (70-100) mg/dL Calcium 9.0 (8.6-10.3) mg/dL Total Bilirubin 0.90 (0.2-1.0) mg/dL Alkaline Phosphatase 129 H (34-104) U/L Total Protein 7.5 (6.4-8.9) g/dL Albumin 4.2 (3.2-5.2) g/dL Globulin 3.3 (2-4) g/dL Albumin/Globulin Ratio 1.3 (1-3) Lipase 517 H (11.0-82.0) U/L Microbiology and Other Data: Microbiology 01/17/18 13:50 Nasal Screen MRSA (PCR)(THERESA) - Final Nasal Mrsa Detected Diagnostic Imaging: Patient Name: MARIELA DUENAS Medical Record#: [id number] Ordering Physician: Yolanda Regalado NP Acct.#: [id number] : 1980 Age: 37 Sex: M Location: [address] [place] [address] Exam Date: 01/16/18 1122 ADM Status: ADM IN Order Information: CT ABD/PEL W Accession Number: [id number] CPT: 14553 CLINICAL HISTORY: Acute pancreatitis COMPARISON: December 26, 2014 TECHNIQUE: Multiple contiguous axial CT scans were obtained of the abdomen and pelvis after the administration of intravenous contrast. Coronal and sagittal multiplanar reformations are submitted for review. Oral contrast was administered. Delayed images were obtained through the abdomen. FINDINGS: LUNG BASES: The lung bases are clear. LIVER: The liver is diffusely low in attenuation compared to the spleen. There are no focal hepatic parenchymal masses. Liver measures 23 cm in long axis. BILE DUCTS: There is no intrahepatic or extrahepatic biliary dilatation. GALLBLADDER: The gallbladder is normal, without pericholecystic inflammatory change. PANCREAS: Again noted is diffuse edema of the pancreas with peripancreatic inflammatory change. There are areas of hypoattenuation within the pancreatic neck and body consistent with areas of necrosis. These have developed from the previous examination, measuring up to 2.5 and 3.9 cm in size respectively. 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 Collateral vessels from the superior mesenteric vein to the splenic hilum are noted. SPLEEN: The spleen measures 16.6 cm in long axis. UPPER GI TRACT: Evaluation of the gastrointestinal tract is limited by incomplete gastric distention. The upper GI tract is unremarkable. SMALL BOWEL AND MESENTERY: The small bowel is normal in contour, course, and caliber. There is no obstruction or dilatation. There is stranding of the mesenteric fat around the pancreas COLON: The colon is normal in contour, course, caliber. There is no pericolonic inflammatory change. ADRENALS: Normal bilaterally. KIDNEYS: The kidneys are normal in shape, size, contour, and axis. There is no hydronephrosis or nephrolithiasis. BLADDER: The bladder is incompletely distended but is grossly normal. PELVIC ORGANS: The prostate gland is normal. The seminal vesicles are symmetric. AORTA: The aorta is normal. IVC: Unremarkable LYMPH NODES: There is no lymphadenopathy by size criteria. ABDOMINAL WALL: There is no evidence for abdominal wall hernia. BONES AND SOFT TISSUES: There are mild diffuse degenerative changes. OTHER: None IMPRESSION: 1. AGAIN NOTED IS PANCREATIC EDEMA WITH PERIPANCREATIC INFLAMMATORY CHANGE CONSISTENT WITH THE HISTORY OF ACUTE PANCREATITIS. 2. THERE HAS BEEN PROGRESSION OF AREAS OF NECROSIS WITHIN THE PANCREATIC NECK AND BODY. 3. 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 THERE ARE COLLATERAL VESSELS FROM THE SUPERIOR MESENTERIC VEIN TO THE SPLENIC HILUM. 4. HEPATOMEGALY WITH FATTY INFILTRATION OF THE LIVER. 5. SPLENOMEGALY. 1 of 2 Assess/Plan/Problems-Billing Assessment: This is a 37 year old male with history of IDDM and acute on chronic pancreatitis 2/2 hypertriglyceridemia that presented to the ER with vomiting and abdominal pain. - Patient Problems (1) Acute pancreatitis Code(s): K85.9 - ACUTE PANCREATITIS, UNSPECIFIED * DO NOT USE * SNOMED Code(s) : 229417367 Comment: - CT as above. Reviewed records from [facility], impression is that pancreatic lesions may represent pancreatic pseudocyst vs. walled off necrosis. Abdominal pain resolved, no leukocytosis and no fever at present. - Patient was on zosyn at [facility] while he was on insulin drip and receiving plasmapheresis. - Follow triglycerides Q12h, currently 1332 down from 3668 at admission - Tolerating CLD with no pain opr vomiting, will advance to [facility] this evening - Continue insulin drip per protocol with D5NS with 20mEqKCL and follow glucose hourly - No DKA, gap is closed - Lipase 501 at admission, will recheck in AM (2) Diabetes mellitus Code(s): E11.9 - TYPE 2 DIABETES MELLITUS WITHOUT COMPLICATIONS SNOMED Code(s) : 54366665 Comment: - Continue insulin drip - Will consult Dr. Lovell in AM for endocrine recommendations at discharge (3) Hypertriglyceridemia Code(s): E78.1 - PURE HYPERGLYCERIDEMIA SNOMED Code(s): 792567794 Comment: - Goal trigs <500, then will DC insulin drip - Will restart fenofibrate when tolerating PO (4) Hypokalemia Code(s): E87.6 - HYPOKALEMIA SNOMED Code(s): 36100626 Comment: - Improving, check lytes in AM (5) Tachycardia Code(s): R00.0 - TACHYCARDIA, UNSPECIFIED SNOMED Code(s): 2853069 Comment: - Mild, now resolved (6) GERD (gastroesophageal reflux disease) Code(s): K21.9 - GASTRO-ESOPHAGEAL REFLUX DISEASE WITHOUT ESOPHAGITIS SNOMED Code(s): 374375727 Comment: - PUD prophy with daily protonix IV Status and Disposition: Remain inpatient. Lengthy discussion with patient that he needs to stay and remain on treatment, records indicate that he signed out AMA at [facility]. Patient agreeable. Counseling and/or Coordination of Care Minutes: Coordinated with Dr. Johnny Salamanca, attending
[2018-01-18] MEDS: Mupirocin 2% OINT* TUBE TOPICAL SCH ×4 (00:43→15:57)
[2018-01-18] MEDS: INSULIN IVPB SCH ×3 (00:44→17:15)
[2018-01-18] MEDS: D5W NS 0.9% 20Meq KCL 1000 ML* 1,000 ML IV SCH ×2 (01:11→05:30)
[2018-01-18 05:40] LABS: ABS Basophils 0 10^3/ul (0-0.2); ABS Eosinophils 0.1 10^3/ul (0-0.6); ABS Lymphocytes 0.8 10^3/ul (1.0-4.8); ABS Monocytes 0.1 10^3/ul (0-0.8); ABS Neutrophils 1.6 10^3/ul (1.5-7.7); ABS Nucleated RBC 0 10^3/ul; Eosinophil % 3.3 % (0-6); Hematocrit 27 % (42-52); Hemoglobin 8.7 g/dl (14.0-18.0); Mean Corpuscular HGB Conc 33 g/dl (31-36); Mean Corpuscular Hemoglobin 25 pg (27-31); Mean Corpuscular Volume 77 fL (80-94); Mean Platelet Volume 9.4 um3 (7.4-10.4); Nucleated Red Blood Cells % 0.1; Platelet Count 85 10^3/ul (150-450); Red Blood Count 3.44 10^6/ul (4.0-5.4); Red Cell Distribution Width 17 % (10.5-15); White Blood Count 2.6 10^3/ul (3.5-10.8)
[2018-01-18 05:53] LABS: EGFR Non-African American 193.7 (>60)
[2018-01-18] MEDS: Enoxaparin(*) 40 MG/0.4 ML SYR SUBCUT SCH (06:00)
[2018-01-18] MEDS: Pantoprazole IV* 40 MG IV SCH (10:03)
[2018-01-18 16:05] VITALS: BP 140/89
--- NOTE | 2018-01-19 14:31 | DS ---
CC: Dr. Hankins; Dr. Eva Mark * DISCHARGE SUMMARY: DATE OF ADMISSION: 01/16/18 DATE OF DISCHARGE: 01/18/18 PRIMARY CARE PROVIDER: Dr. Prince Hankins. ATTENDING FOR THIS ADMISSION: Dr. Johnny Salamanca. MY ATTENDING FOR TODAY: Dr. 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 The patient has a known history of pancreatitis, insulin-dependent diabetes mellitus, and hypertriglyceridemia. The patient was last seen in the emergency department on 12/26/17. At that time, he was transferred to [facility] for plasmapheresis because his triglycerides were over 11,000 with acute pancreatitis. At this admission, the patient's triglycerides were 3600, so he did not require plasmapheresis; however, he did require pain control and fluids. The patient was admitted to telemetry service. He was kept n.p.o., given 3 L of normal saline, and was started on maintenance at 200 mL/hour. Of significant note, his blood sugar was 506; however, he was not exhibiting diabetic ketoacidosis. He did have electrolyte disturbances with a sodium of 122, a chloride of 88, and a potassium that was also labile. The patient was aggressively hydrated. He was given IV pain medication with Dilaudid and tight glycemic control. By the following morning, the patient did have resolution of his abdominal pain; however, his triglycerides were not trending down enough. We opted to put the patient in the ICU on an insulin drip, which started at 0.1 units per kg per hour. This was titrated down to keep his sugars in the 100 range. The patient was also started on D5 with normal saline and 20 of potassium to help replenish his electrolytes. The patient was started on a clear diet, which he tolerated, advanced to full liquid diet yesterday, also which he tolerated, and then ultimately to soft diet today. The patient's triglycerides during this admission started at 3661 and then it dropped to 1840 , 1332, 836, and then finally this afternoon 749. The patient remained stable, nontoxic appearing throughout his entire hospitalization. His pain resolved relatively quickly. We did repeat a CAT scan on the 01/17/18, which showed CAT scan of the abdomen and pelvis with contrast, exhibited some interval change from the one noted on the 12/26/17. The impression was again noted as pancreatic edema with peripancreatic inflammatory change consistent with history of acute pancreatitis. There has been progression of areas of necrosis within the pancreatic neck and body, again noted is occlusion of the splenic vein. There are collateral vessels from the superior mesenteric vein to the splenic hilum. Hepatomegaly with fatty infiltration of the liver. We also obtained records from [facility] to assess surgical opinion given the apparent necrosis in the tail and head of the pancreas. The reports from [facility] from his last imaging concluded that these areas of hypoattenuation in the pancreas likely represented pancreatic pseudocyst or walled-off necrosis. In either case , the patient exhibited no leukocytosis, no fever. Vomiting resolved shortly after admission and abdominal pain was gone within 24 hours. He did not meet any criteria for sepsis treatment and the patient remained stable throughout his admission. We agreed to discharge the patient today stopping the insulin drip and starting him back on fenofibrate. We also started him on fish oil 1000 mg daily. DISCHARGE DIAGNOSES: 1. Uzyyw-lz-pndutjj pancreatitis. 2. Insulin-dependent diabetes mellitus, uncontrolled. 3. Hypertriglyceridemia. 4. Multiple electrolyte disturbances. 5. History of gastroesophageal reflux disease. DISCHARGE MEDICATIONS: Include, 1. Humalog 10 units subcu 3 times a day. 2. Omeprazole 20 mg daily. 3. [place]-3 fatty acids 1000 mg daily. 4. Fenofibrate 150 mg daily. 5. Levemir was increased to 60 units at bedtime. FOLLOWUP: The patient has a followup with our [facility] this Tuesday at 11:[address] Eva aMrk. The patient was also instructed to follow up with Dr. Hankins, his primary care, in 1 to 2 weeks. The [facility] will be reaching out to the patient to coordinate outpatient care. Also, we will give referral to the patient for JAN[facility] Rogel, for endocrine speciality to help further manage his diabetes. The patient was discharged in stable condition. All questions were answered. The patient stated his understanding of his discharge instructions, his followups, and medications. Of significant note, I had a very lengthy discussion with the patient regarding followup as his last admission to [facility] , the patient did sign out against medical advice. I advised him very strongly that given the serious nature of his pancreatic disease and other issues that he should in the future stay in the hospital when needed to prevent further complications and decompensation. The patient states his understanding and as stated he will try to follow up closely and stay adherent to medical recommendations. Again, the patient was discharged in stable condition. HORACIO SCHWAB NP [id number]/[facility] #: [id number] CARLYN
== END 2018-01-18 17:00 | disposition home or self-care (01) | DRG 282 ==
LOC: ED 23:50 → MED 01-16 04:56 → ICU 01-17 09:24
PROVIDERS: ADMIT Student in an Organized Health Care Education/Training Program; ATTEND Internal Medicine
DX: K85.91 Acute pancreatitis with uninfected necrosis, unspecified (principal); E87.1 Hypo-osmolality and hyponatremia; I82.890 Acute embolism and thrombosis of other specified veins; K86.3 Pseudocyst of pancreas; K21.9 Gastro-esophageal reflux disease without esophagitis; I10 Essential (primary) hypertension; E78.1 Pure hyperglyceridemia; E11.65 Type 2 diabetes mellitus with hyperglycemia; E66.01 Morbid (severe) obesity due to excess calories; K86.89 Other specified diseases of pancreas; K76.0 Fatty (change of) liver, not elsewhere classified; K86.1 Other chronic pancreatitis; R00.0 Tachycardia, unspecified; E87.6 Hypokalemia; Z79.4 Long term (current) use of insulin; Z87.19 Personal history of other diseases of the digestive system; Z80.1 Family history of malignant neoplasm of trachea, bronchus and lung; Z72.89 Other problems related to lifestyle; Z83.49 Family history of other endocrine, nutritional and metabolic diseases; Z80.6 Family history of leukemia; Z90.89 Acquired absence of other organs; Z87.891 Personal history of nicotine dependence; Z68.32 Body mass index [BMI] 32.0-32.9, adult
CPT/HCPCS: 36415; 71046; 74177; 80053; 80061; 82248; 82570; 82803; 83690; 83721; 83930; 83935; 84133; 84300; 84443; 84460; 84478; 84520; 84540; 85025; 87641; 99284; 99406; J1170; J1650; J1815; J2270; J2405; Q9967